=== PATIENT | female | born 1950 | race Caucasian/White ===

== ENCOUNTER 2022-09-18 03:14 | Emergency (ER) | payer OTHER ==
--- OUTSIDE RECORDS SUMMARY | 2022-09-18 03:18 | XMS REPORT | Continuity of Care Document ---
:1950 Author Organization [facility] t Address [address] [place] [address] [address] [place] [address] Care Team Providers Name Role Phone JOSE CRUZ GERONIMO Primary Care Physician Unavailable HANK GARCIA Attending Clinician Unavailable Hank Garcia MD Attending Clinician Doctor Unassigned, [place] Attending Clinician Unavailable RADIOLOGY Attending Clinician Unavailable Radiology Attending Clinician Unavailable SHAHEEN RIOS Attending Clinician Unavailable Jd Landa DO Attending Clinician ELIESER INMAN NP Attending Clinician Unavailable DAYNA LALA M.D. Attending Clinician Unavailable HANK GARCIA Admitting Clinician Unavailable Hank Garcia MD Admitting Clinician JOSE CRUZ GERONIMO Admitting Clinician Unavailable Payers Payer Name Policy Type Policy Number Effective Date Expiration Date [facility] [id number] 2021 [facility] 00:00:00 PPO [employer] MEDICARE ERS [id number] 2017 00:00:00 Problems Condition Condition Condition Status Onset Resolution Last Treating Co mments Source Name Details Category Date Date Treatment Clinician Date No known No known Disease Unive rs active active ity of problems problems [facility] Hallux Hallux Problem Active [facility] interphala interphala Ph ysici ngeus, ngeus, ans acquired, acquired, right right Acquired Acquired Problem Active [facility] hallux hallux Physici rigidus, rigidus, ans right right Pain due Pain due Problem Active [facility] to bone to bone Physici fixation fixation ans device, device, initial initial encounter encounter Allergies, Adverse Reactions, Alerts Allergy Allergy Status Severity Reaction(s) Onset Inactive Treating Comm ents Source Name Type Date Date Clinician NO KNOWN Drug Active Univers ALLERGIE Class ity of S [facility] Family History Family Member Diagnosis Comments Start Date Stop Date Source Father Family history of malignant [facility] neoplasm Social History Social Habit Start Date Stop Date Quantity Comments Source History of tobacco Cigarette Smoker University of use [facility] Cigarettes smoked 2022-04-03 2022-04-03 Univers ity of current (pack per 00:00:00 00:00:00 [facility] [place] ) - Reported Branch Cigarette 2022-04-03 2022-04-03 University of pack-years 00:00:00 00:00:00 [facility] Tobacco use and 2022-04-03 2022-04-03 Smokeless Universit y of exposure 00:00:00 00:00:00 tobacco non-user [facility] dical [place] Alcohol intake 2022-04-03 2022-04-03 Current drinker Unive rsity of 00:00:00 00:00:00 of alcohol [facility] (finding) [place] Alcohol Comment 2022-04-03 2022-04-03 rarely Universit y of 00:00:00 00:00:00 [facility] Exposure to 2022-03-18 2022-03-28 Not sure [facility] SARS-CoV-2 (event) 00:00:00 13:32:00 [facility] Sex [birth year] Universit y of 00:00:00 00:00:00 [facility] Smoking Status Start Date Stop Date Source Never smoker [facility] Ex-smoker 2022-04-03 00:00:00 2022-04-03 University [facility] [place] 00:00:00 [facility] Tobacco smoking [facility] xa consumption unknown Medical Bran ch Medications Ordered Filled Start Stop Current Ordering Indication Dosage Frequency Signature Comments Components Source Medication Medication Date Date Medication? Clinician (SIG) Name Name water for 2021-04- No PRN, Univers irrigation 06-04 Starting ity of irrigation 18:07: 18:31 on Fri [place] solution 00 :16 04/03/22 at Medic al 1207, Branch Until Fri04/03/22 at 1231, Routine, Intra-op simethicone 2021-04- No PRN, Unive rs (GAS RELIEF 06-04- Starting ity of (SIMETHICON 18:07: 18:31 on Fri [place] as E)) 40 00 :16 04/03/22 at Medical mg/0.6 mL 1207, Branch drops Until Fri04/03/22 at 1231, Routine, Intra-op lactated 2021-04- No 1000mL at 42 Unive rs ringers IV 06-04 12-07 mL/hr, ity of infusion 16:45: 16:37 1,000 mL, Edwar as 1,000 mL 00 :00 IV Medical Infusion, Branch ONCE, 1 dose, On Fri04/03/22 at 1045, Routine, DSU Pre-op lactated 2021-04- No 1000mL at 42 Unive rs ringers IV 06-04 12-07 mL/hr, ity of infusion 16:45: 16:37 1,000 mL, Ed[place] as 1,000 mL 00 :00 IV Medical Infusion, Branch ONCE, 1 dose, On Fri04/03/22 at 1045, Routine, DSU Pre-op Diethylprop 2021-04 Yes 1{tbl} Take 1 Un bashir ion HCl 75 0-10 tablet by ity of mg TbSR 00:00: mouth [place] 00 every Medical morning. Branch hydrOXYzine 2021-04 Yes 1{tbl} Take 1 Un bashir 10 mg 0-10 tablet by ity of tablet 00:00: mouth as [place] 00 needed. Medical Branch Diethylprop 2021-04 Yes 1{tbl} Take 1 Un bashir ion HCl 75 0-10 tablet by ity of mg TbSR 00:00: mouth [place] 00 every Medical morning. Branch hydrOXYzine 2021-04 Yes 1{tbl} Take 1 Un bashir 10 mg 0-10 tablet by ity of tablet 00:00: mouth as [place] 00 needed. Medical Branch Diethylprop 2021-04 Yes 1{tbl} Take 1 Un bashir ion HCl 75 0-10 tablet by ity of mg TbSR 00:00: mouth [place] 00 every Medical morning. Branch hydrOXYzine 2021-04 Yes 1{tbl} Take 1 Un bashir 10 mg 0-10 tablet by ity of tablet 00:00: mouth as [place] 00 needed. Medical Branch ezetimibe 2021-04 Yes 10mg Take 10 mg Un bashir 10 mg 0-03 by mouth ity of tablet 00:00: in the [place] morning. Medical Branch ezetimibe 2021-04 Yes 10mg Take 10 mg Un bashir 10 mg 0-03 by mouth ity of tablet 00:00: in the [place] morning. Medical Branch ezetimibe 2021-04 Yes 10mg Take 10 mg Un bashir 10 mg 0-03 by mouth ity of tablet 00:00: in the [place] morning. Medical Branch SERTraline 2021-04 Yes 50mg Take 50 mg U nivers 50 mg 0-01 by mouth ity of tablet 00:00: in the [place] morning. Medical Branch SERTraline 2021-04 Yes 50mg Take 50 mg U nivers 50 mg 0-01 by mouth ity of tablet 00:00: in the [place] morning. Medical Branch SERTraline 2021-04 Yes 50mg Take 50 mg U nivers 50 mg 0-01 by mouth ity of tablet 00:00: in the [place] morning. Medical Branch rosuvastati Yes 10mg Take 10 mg Univers n 10 mg 9-13 by mouth ity of tablet 00:00: every [place] other day. Medical Branch rosuvastati Yes 10mg Take 10 mg Univers n 10 mg 9-13 by mouth ity of tablet 00:00: every [place] other day. Medical Branch rosuvastati Yes 10mg Take 10 mg Univers n 10 mg 9-13 by mouth ity of tablet 00:00: every [place] other day. Medical Branch Acetaminoph Acetaminoph 2018-04 Yes DAYNA Q6H TAKE 1 UT en-Codeine en-Codeine 2-11 GREASER TABLET Physici 300-30 MG 300-30 MG 00:00: M.D. EVERY 6 ans Oral Tablet Oral Tablet 00 HOURS NEEDED. Cephalexin Cephalexin Yes DAYNA Q0.25D TAKE 1 UT 500 MG Oral 500 MG Oral 9-20 [facility] CAPSULE 4 Physici Capsule Capsule 00:00: M.D. TIMES ans 00 DAILY UNTIL GONE. Meloxicam Meloxicam Yes DAYNA 1 TAKE 1 UT 15 MG Oral 15 MG Oral 5-24 GREASER TABLET Physici Tablet Tablet 00:00: M.D. DAILY ans 00 NEEDED. methylPREDN methylPREDN 2018-0 Yes DAYNA USE UT ISolone 4 ISolone 4 5-24 GREASER DIRECTED. Physici MG Oral MG Oral 00:00: M.D. ans Tablet Tablet 00 Sertraline Sertraline Yes UT HCl TABS HCl TABS Physici ans Immunizations Ordered Filled Immunization Date Status Comments [facility] e Immunization Name Name SARS-COV-2 COVID-19 2020-06-07 Completed Unive rsity of PFIZER VACCINE 00:00:00 [facility] SARS-COV-2 COVID-19 2020-06-07 Completed Unive rsity of PFIZER VACCINE 00:00:00 [facility] SARS-COV-2 COVID-19 2020-06-07 Completed Unive rsity of PFIZER VACCINE 00:00:00 [facility] SARS-COV-2 COVID-19 2020-06-07 Completed Unive rsity of PFIZER VACCINE 00:00:00 [facility] SARS-COV-2 COVID-19 2020-06-07 Completed Unive rsity of PFIZER VACCINE 00:00:00 [facility] SARS-COV-2 COVID-19 2020-06-07 Completed Unive rsity of PFIZER VACCINE 00:00:00 [facility] SARS-COV-2 COVID-19 2020-05-17 Completed Unive rsity of PFIZER VACCINE 00:00:00 [facility] SARS-COV-2 COVID-19 2020-05-17 Completed Unive rsity of PFIZER VACCINE 00:00:00 [facility] SARS-COV-2 COVID-19 2020-05-17 Completed Unive rsity of PFIZER VACCINE 00:00:00 [facility] SARS-COV-2 COVID-19 2020-05-17 Completed Unive rsity of PFIZER VACCINE 00:00:00 [facility] SARS-COV-2 COVID-19 2020-05-17 Completed Unive rsity of PFIZER VACCINE 00:00:00 [facility] SARS-COV-2 COVID-19 2020-05-17 Completed Unive rsity of PFIZER VACCINE 00:00:00 [facility] SARS-COV-2 COVID-19 2020-05-17 Completed Unive rsity of PFIZER VACCINE 00:00:00 [facility] Vital Signs Vital Name Observation Time Observation Value Comments Source Systolic blood 2022-04-03 18:50:00 138 mm[Hg] Univer sity of pressure [place] [facility] Diastolic blood 2022-04-03 18:50:00 64 mm[Hg] Unive rsity of pressure [place] [facility] [place] Heart rate 2022-04-03 18:50:00 50 /min Universi ty of [place] [facility] Respiratory rate 2022-04-03 18:50:00 11 /min Univ ersity of [place] [facility] Oxygen saturation in 2022-04-03 18:50:00 99 /min University of Arterial blood by [facility] Pulse oximetry Branch Body temperature 2022-04-03 16:34:00 36.67 [facility] ersity of [place] [facility] Body height 2022-03-28 19:00:00 163.8 cm Universi ty of [place] [facility] [place] Body weight 2022-03-28 19:00:00 90.719 kg Universi ty of [place] [facility] [place] BMI 2022-03-28 19:00:00 33.80 kg/m2 Universi ty of [place] [facility] Systolic blood 2022-04-03 18:35:00 117 mm[Hg] Univer sity of pressure [place] [facility] Diastolic blood 2022-04-03 18:35:00 59 mm[Hg] Unive rsity of pressure [place] [facility] Heart rate 2022-04-03 18:35:00 52 /min Universi ty of [place] [facility] Respiratory rate 2022-04-03 18:35:00 16 /min Univ ersity of [place] [facility] Oxygen saturation in 2022-04-03 18:35:00 98 /min University of Arterial blood by [facility] Pulse oximetry Branch Body temperature 2022-04-03 16:34:00 36.67 Ana Univ ersity of [place] [facility] Body height 2022-03-28 19:00:00 163.8 cm Universi ty [facility] [place] [facility] Body weight 2022-03-28 19:00:00 90.719 kg [facility]i ty [facility] [place] [facility] BMI 2022-03-28 19:00:00 33.80 kg/m2 [facility] [place] [facility] Procedures Procedure Date / Time Performing Clinician Source Performed COLONOSCOPY 2022-04-03 17:51:00 Hank Garcia [facility] COLONOSCOPY (ENDO) 2022-04-03 17:36:20 Jose Cruz Geronimo [facility] COLONOSCOPY (ENDO) 2022-04-03 17:36:20 Jose Cruz Geronimo [facility] PATIENT QUESTIONNAIRE 2022-04-03 06:01:00 Doctor Unassigned, No [facility] EXTERNAL PROVIDER 2022-03-15 06:01:00 Doctor Unassigned, No [facility] EXTERNAL PROVIDER 2022-03-15 06:01:00 Doctor Unassigned, No [facility] BI SELF-REQUESTED 2021-03-09 15:57:00 Requisition, Paper [facility] BILATERAL ASSIGNMENT OF BENEFITS 2021-03-09 15:32:48 Doctor Unassigned, No [facility] BI SELF-REFERRED 2020-02-16 15:17:00 Jose [facility] BILATERAL ASSIGNMENT OF BENEFITS 2020-02-16 14:48:47 Doctor Unassigned, No [facility] Post Op Promis 29 Survey 2019-05-13 00:00:00 [place] [facility] Encounters Start End Encounter Admission Attending Care Care Encounter Source Date/Time Date/Time Type Type Clinicians Facility Department ID 2022-04-03 2022-04-03 Outpatient R [facility] [id number] Univers 10:28:00 13:02:00 HANK Mtz f [facility] 2022-04-03 2022-04-[address] [facility] 1.2.840.114 [id number] Univers 10:28:00 13:02:00 Encounter Hank mtz [id number] ity of [id number] [id number] [place] [id number] Branch 2022-04-03 2022-04-[address] [facility] 1.2.840.114 [id number] Univers 11:51:00 12:35:00 Hank mtz [id number] ity [id number] [id number] [facility] 020 Branch 2022-04-03 2022-04-03 Orders Doctor GEOVANI 1.2.840.114 [id number] Univers 00:00:00 00:00:00 Only Unassigned, HESHAM [id number] ity of [place] [facility] [id number] [place] as [id number] [facility] 009 Branch 2022-03-13 2022-03-13 Outpatient R RADIOLOGY [facility] [id number] Univers 10:58:28 23:59:00 ity of [facility] 2022-03-13 2022-03-13 Hospital Radiology [facility] 1.2.840.114 [id number] Univers 10:58:28 23:59:00 Encounter [place] [id number] ity [id number] [id number] [facility] [address] [place] 2021-03-09 2021-03-09 Outpatient R RADIOLOGY [facility] [id number] Univers 09:33:46 23:59:00 ity of [facility] 2021-03-09 2021-03-09 Hospital Radiology [facility] 1.2.840.114 [id number] Univers 09:33:46 23:59:00 Encounter [place] [id number] ity [id number] [id number] [facility] 800 Branch 2021-03-09 2021-03-09 Orders Doctor GEOVANI 1.2.840.114 [id number] Univers 00:00:00 00:00:00 Only Unassigned, HESHAM [id number] ity of [place] [facility]OSP[facility] [id number] [place] as [id number] [facility] 009 Branch 2020-06-07 2020-06-07 Outpatient R GABRIEL, [facility] [id number] Univers 11:50:00 11:50:00 SHAHEEN ity of [facility] 2020-05-18 2020-05-18 Patient Cordell [facility] 1.2.840.114 [id number] Univers 00:00:00 00:00:00 Outreach Jd PRIMARY [id number] i ty of [facility] [id number] [facility] [id number] [place] dical 388 [place] 2020-05-17 2020-05-17 Outpatient R GABRIEL, [facility] [id number] Univers 12:20:00 12:20:[address] [facility] 2020-05-11 2020-05-11 Outpatient R GABRIEL, [facility] [id number] Univers 10:10:00 10:10:[address] [facility] 2020-02-16 2020-02-16 [facility] Radiology [facility] 1.2.840.114 [id number] 09:49:36 23:59:00 Encounter [place]anch [id number] [place] [id number] [place] [id number] 2020-02-16 2020-02-16 [facility] Radiology [facility] 1.2.840.114 [id number] Univers 09:49:36 23:59:00 Encounter Blanch [id number] ity of [place] [id number] [facility] [place] [id number] [facility] 800 [place] 2020-02-16 2020-02-16 Outpatient R RADIOLOGY [facility] [id number] Univers 09:50:00 09:50:[address] [facility] 2020-02-16 2020-02-16 Orders Doctor GEOVANI 1.2.840.114 [id number] 00:00:00 00:00:00 Only Unassigned, [place]ESH[place] [id number] [place] [facility] 4.2.7.2.686 [id number] 2020-02-16 2020-02-16 Orders Doctor GEOVANI 1.2.840.114 [id number] Univers 00:00:00 00:00:00 Only Unassigned, HESHAM [id number] ity of [place] [facility] [id number] Ed[place] [id number] [facility] 009 [place] 2019-04-26 2019-04-26 AppointEAMON Lee UTP [id number] [place] 10:15:00 10:15:00 t; Lisa MON NP ans MELODY MON 2019-04-07 2019-04-07 Keith LALA [facility] Orthopedics [id number] [place] 07:00:00 07:00:00 t; gregorio MCINTOSH [facility] Vandana Ball [facility] 2019-04-07 2019-04-07 [facility] [id number] 05:08:00 05:08:00 Orthop e dic [facility] 2019-03-02 2019-03-02 Keith LALA [facility] Orthopedics [id number] [place] 10:30:00 10:30:00 t; gregorio MCINTOSH [facility] Vandana Winston [facility] 2019-01-08 2019-01-08 [facility] Radiology [facility] 1.2.840.114 [id number] 10:00:00 23:59:00 Encounter [place] [id number] [place] [id number] [place] [id number] 2019-01-08 2019-01-08 [facility] Radiology [facility] 1.2.840.114 [id number] [facility] 10:00:00 23:59:00 Encounter Blanch [id number] ity of [place] [id number] [facility] [id number] [address] 2018-03-24 2018-03-24 Keith INMAN, [facility] [id number] [place] 13:00:00 13:00:00 t; Lisa MON NP ans KRISTINA, NP 2018-02-12 2018-02-12 Keith LALA, [facility] [id number] [place] 11:00:00 11:00:00 t; Angela MCINTOSH M.D. ans MICHAEL, M.D. 2018-02-10 2018-02-10 Keith INMAN, [facility] [id number] [place] 14:15:00 14:15:00 t; Lisa MON NP ans KRISTINA, NP 2018-01-15 2018-01-15 Keith LALA, [facility] [id number] [place] 11:00:00 11:00:00 t; Chelsi MCINTOSH M.D. Orthopedics danitza MCINTOSH M.D. 2018-01-02 2018-01-02 [facility] [place] [id number] [place] 09:00:00 09:00:00 t; Chelsi MCINTOSH M.D. Orthopedics danitza MCINTOSH M.D. 2017-09-18 2017-09-18 Keith DAI [facility] [id number] [place] 09:45:00 09:45:00 t; Chelsi MCINTOSH M.D. Orthopedics danitza MCINTOSH M.D. Results Test Description Test Time Test Comments Results Result [facility] e Comments BI SELF-REFERRED 2020-01-28 Examination:BI Univ ersity of SCREENING 1 SELF-REFERRED [place] [facility] TOMOSYNTHESIS 16:36:40 SCREENING Branch BILATERAL TOMOSYNTHESIS BILATERAL History:Patient is 69 year old and is seen for: ?Screening. Computer-aided detection (CAD) utilized. Comparisons: 01/08/2019 BI SELF-REFERRED SCREENING TOMOSYNTHESIS BILATERAL, 09/15/2017 BI SCREENING TOMOSYNTHESIS BILATERAL, 12/27/2015 DIGITAL MAMMOGRAM, SCREENING, and 12/20/2014 DIGITAL MAMMOGRAM, SCREENING Findings:The breasts have scattered areas of fibroglandular density. There is no evidence of suspicious masses, calcifications, or other abnormal findings. The patient has had a previous reduction mammoplasty. Impression:No mammographic evidence of malignancy. Recommendation:Jennyfer thurston mammographic follow-up - Bilateral BI-RADS Category: Both 2 - Benign
[2022-09-18] MEDS ORDERED: METOCLOPRAMIDE 10 MG/2mL INJ ONE (04:04)
[2022-09-18] MEDS ORDERED: ONDANSETRON 4 MG/2 ML VIAL ONE (04:05)
[2022-09-18] MEDS ORDERED: NA CHLORIDE 0.9% 1,000 ML ONE ×2 (04:05→05:55)
[2022-09-18 04:17] LABS: Absolute Lymphocytes (CBC) 1.8 K/uL (0.7-4.9); Hematocrit 36.3 % (36.0-45.0); Lymphocytes % 37.4 % (15.3-44.8); MCV 87.2 fL (80-100); RBC Red Blood Cell Count 4.16 M/uL (3.86-4.86)
[2022-09-18 04:19] LABS: Protime INR 1.05
[2022-09-18 04:43] LABS: Albumin 3.5 g/dL (3.4-5.0); Bilirubin Total 0.4 mg/dL (0.2-1.0); Potassium 3.7 mEq/L (3.5-5.1); Protein, Total 6.5 g/dL (6.4-8.2); Troponin High Sensitivity 6.7 pg/mL (<58.9)
[2022-09-18] MEDS ORDERED: ALBUMIN HUMAN 25% 50 ML IV ONE ×2 (05:55→06:27)
--- NOTE | 2022-09-18 06:43 | ER ---
Nurse's Notes [facility] Name: Leona Perez Age: 72 yrs Sex: Female : 1950 Arrival Date: 09/18/2022 Time: 03:14 Bed 17 Private MD: Diagnosis: Adverse reaction to opiates, acute nausea vomiting, dizziness, mild dehydration. Presentation: 09/18 03:18 Onset of symptoms was September 18, 2022. [facility] 03:28 Chief complaint: Patient states: nausea vomiting burping since 2 am recent history of leg cramps reports severe cramping last PM took spouse hydrocodone and muscle relaxer prior to bed. Coronavirus screen: Vaccine status: Patient reports receiving the 2nd dose of the covid vaccine. Ebola Screen: Patient negative for fever greater than or equal to 101.5 degrees Fahrenheit, and additional compatible Ebola Virus Disease symptoms. Initial Sepsis Screen: Does the patient meet any 2 criteria? No. Patient's initial sepsis screen is negative. Does the patient have a suspected source of infection? No. Patient's initial sepsis screen is negative. Risk Assessment: Do you want to hurt yourself or someone else? Patient reports no desire to harm self or others. 03:28 Method Of Arrival: Wheelchair 03:28 Acuity: ZULEIKA 3 kl Triage Assessment: 03:33 General: Appears uncomfortable, ill, Behavior is cooperative, anxious. Pain: Complains kl of pain in bilateral lower extremities intermittent cramping. Neuro: Reports dizziness, weakness difficulty ambulating. GI: Reports nausea, vomiting, since 0200. Historical: - Allergies: 03:31 No Known Allergies; kl - Home Meds: 03:31 sertraline 50 mg oral tablet daily [Active]; ezetimibe 10 mg oral tablet daily kl [Active]; rosuvastatin 10 mg oral tablet daily [Active]; hydroxyzine HCl 10 mg Oral tablet 1 tab once [Active]; - PMHx: 03:31 Depression; kl - PSHx: 03:31 None; kl - Immunization history:: Adult Immunizations up to date. - Social history:: Smoking status: Patient/guardian denies using tobacco, but has a distant history of tobacco abuse. - Family history:: not pertinent. Screenin/23 03:18 Abuse screen: Denies threats or abuse. Denies injuries from another. Nutritional ha1 screening: No deficits noted. Tuberculosis screening: No symptoms or risk factors identified. 03:18 [facility] ED Fall Risk Assessment (Adult) History of falling in the last 3 months, ha1 including since admission No falls in past 3 months (0 pts) Confusion or Disorientation No (0 pts) Intoxicated or Sedated No (0 pts) Impaired Gait No (0 pts) Mobility Assist Device Used No (0 pt) Altered Elimination No (0 pt) Score/Fall Risk Level 0 - 2 = Low Risk Oriented to surroundings, Maintained a safe environment, Educated pt \T\ family on fall prevention, incl call for assistance when getting out of bed, Hourly rounding (assess needs \T\ fall precautionary measures) done. Assessment: 09/18 04:02 General: Appears uncomfortable, Behavior is calm, cooperative. Pain: Denies pain. ha1 Neuro: Level of Consciousness is awake, alert, obeys commands, Oriented to person, place, time, situation. Cardiovascular: Capillary refill Patient's skin is warm and dry. Rhythm is sinus bradycardia. Respiratory: Airway is patent Respiratory effort is even, unlabored, Respiratory pattern is regular, symmetrical. GI: Abdomen is flat, non-distended, Bowel sounds present X 4 quads. Reports indigestion, burping a lot. : No signs and/or symptoms were reported regarding the genitourinary system. Derm: Skin is pink, warm \T\ dry. Musculoskeletal: Circulation, motion, and sensation intact. Range of motion: intact in all extremities, Reports intermittent cramps on the legs. 04:02 EENT: No signs and/or symptoms were reported regarding the EENT system. ha1 05:00 Reassessment: Patient and/or family updated on plan of care and expected duration. Pain ha1 level reassessed. Patient is alert, oriented x 3, equal unlabored respirations, skin warm/dry/pink. Patient states symptoms have improved. 05:30 Reassessment: Patient and/or family updated on plan of care and expected duration. Pain ha1 level reassessed. Patient is alert, oriented x 3, equal unlabored respirations, skin warm/dry/pink. reported low blood pressure to Dr. Israel. 06:00 Reassessment: Patient and/or family updated on plan of care and expected duration. Pain ha1 level reassessed. Patient is alert, oriented x 3, equal unlabored respirations, skin warm/dry/pink. Patient denies pain at this time. Patient states feeling better. Patient states symptoms have improved. 07:15 Reassessment: awaiting fluid completion prior to patient discharge. ap3 08:23 Reassessment: No changes from previously documented assessment. Patient and/or family ll1 updated on plan of care and expected duration. Pain level reassessed. Patient is alert, oriented x 3, equal unlabored respirations, skin warm/dry/pink. Vital Signs: 03:28 BP 92 / 45; Pulse 47; Resp 16; Pulse Ox 100% on R/A; Weight 83.5 kg (M); Height 5 ft. 4 kl in. ; Pain 0/10; 04:30 BP 94 / 61; Pulse 56; Resp 15; Pulse Ox 95% on R/A; ha1 05:00 BP 93 / 60; Pulse 56; Resp 16 S; Pulse Ox 95% on R/A; ha1 05:30 BP 88 / 70; Pulse 54; Resp 16 S; Pulse Ox 97% on R/A; ha1 06:00 BP 102 / 68; Pulse 66; Resp 18 S; Pulse Ox 98% on R/A; ha1 07:05 Temp 97.9; ha1 08:21 BP 99 / 62; Pulse 57; Resp 15; Pulse Ox 96% ; Pain 0/10; ll1 03:28 Body Mass Index 31.60 (83.50 kg, 162.56 cm) kl 03:28 Pain Scale: Adult kl 08:21 Pain Scale: Adult ll1 ED Course: 03:16 Patient arrived in ED. ja2 03:18 Patient has correct armband on for positive identification. Placed in gown. Bed in low ha1 position. Call light in reach. Side rails up X 1. Adult w/ patient. 03:18 Arm band placed on right wrist. ha1 03:21 Getachew Israel MD is Attending Physician. sp4 03:24 Bety Cyr RN is Primary Nurse. ha1 03:31 Triage completed. kl 04:00 Inserted saline lock: 22 gauge in left antecubital area, using aseptic technique. Blood ha1 collected. 04:15 NT PRO-BNP Sent. ha1 04:15 PT-INR Sent. ha1 04:15 Troponin HS Sent. ha1 04:15 CBC with Diff Sent. ha1 04:15 CMP Sent. ha1 05:58 Chest Single View XRAY In Process Unspecified. EDMS 08:21 No provider procedures requiring assistance completed. IV discontinued, intact, ll1 bleeding controlled, No redness/swelling at site. Pressure dressing applied. Administered Medications: 04:10 Drug: Ondansetron IVP 4 mg Route: IVP; Site: left antecubital; ha1 06:20 Follow up: Response: No adverse reaction ha1 04:10 Drug: NS 0.9% IV 1000 ml Route: IV; Rate: 1 bolus; Site: left antecubital; ha1 06:20 Follow up: Response: No adverse reaction; IV Status: Completed infusion; IV Intake: ha1 1000ml 04:10 Drug: Ondansetron IVP 4 mg Route: IVP; Site: left antecubital; ha1 06:21 Follow up: Response: No adverse reaction ha1 04:14 Drug: metoCLOPramide IVP 10 mg Route: IVP; Site: left antecubital; ha1 06:21 Follow up: Response: No adverse reaction ha1 05:50 Drug: NS 0.9% IV 1000 ml Route: IV; Rate: 125 ml/hr; Site: left antecubital; ha1 08:22 Follow up: Response: No adverse reaction; IV Status: Completed infusion; IV Intake: ll1 1000ml 06:20 Drug: Albumin IVPB 25 grams Volume: 100 ml; Route: IVPB; Site: left antecubital; ha1 08:22 Follow up: Response: No adverse reaction; IV Status: Completed infusion; IV Intake: ll1 100ml Medication: 08:22 VIS not applicable for this client. ll1 Intake: 06:20 IV: 1000ml; Total: 1000ml. ha1 08:22 IV: 100ml; Total: 1100ml. ll1 08:22 IV: 1000ml; Total: 2100ml. ll1 Outcome: 06:43 Discharge ordered by . spHenry 08:22 Discharged to home ambulatory. ll1 08:22 Condition: stable 08:22 Discharge instructions given to patient, family, Instructed on discharge instructions, follow up and referral plans. medication usage, Demonstrated understanding of instructions, follow-up care, medications, Prescriptions given X 2. 08:23 Patient left the ED. ll1 Signatures: Dispatcher [employer] EDYarely Zamarripa RN RN kl Prokisch, Amanda, RN RN ap3 Lewis, Lynsay, RN RN ll1 Karen Sanz Heidy, RN RN ha1 Getachew Israel MD MD sp4 Corrections: (The following items were deleted from the chart) 08:22 08:22 Response: No adverse reaction 1 1
--- NOTE | 2022-09-18 06:44 | EDPHYS ---
Physician Documentation [facility] Name: Leona Perez Age: 72 yrs Sex: Female : 1950 Arrival Date: 09/18/2022 Time: 03:14 Bed 17 Private MD: ED Physician Getachew Israel HPI: 09/18 03:37 This 72 yrs old Female presents to ER via Wheelchair with complaints of sp4 Nausea, Weakness, Dizziness. 03:37 Very pleasant 72-year-old female with history of depression and dementia presents with sp4 cute onset of generalized weakness, vomiting, muscular cramps after she consumed her 's hydrocodone and tizanidine for muscle cramps at home. . Historical: - Allergies: 03:31 No Known Allergies; kl - Home Meds: 03:31 sertraline 50 mg oral tablet daily [Active]; ezetimibe 10 mg oral tablet daily kl [Active]; rosuvastatin 10 mg oral tablet daily [Active]; hydroxyzine HCl 10 mg Oral tablet 1 tab once [Active]; - PMHx: 03:31 Depression; kl - PSHx: 03:31 None; kl - Immunization history:: Adult Immunizations up to date. - Social history:: Smoking status: Patient/guardian denies using tobacco, but has a distant history of tobacco abuse. - Family history:: not pertinent. ROS: 06:09 Constitutional: Negative for fever, chills, and weight loss, Eyes: Negative for injury, sp4 pain, redness, and discharge, ENT: Negative for injury, pain, and discharge, Neck: Negative for injury, pain, and swelling, Cardiovascular: Negative for chest pain, palpitations, and edema, Respiratory: Negative for shortness of breath, cough, wheezing, and pleuritic chest pain, Abdomen/GI: Negative for abdominal pain, nausea, vomiting, diarrhea, and constipation, Back: Negative for injury and pain, : Negative for injury, bleeding, discharge, and swelling, MS/Extremity: Negative for injury and deformity, Skin: Negative for injury, rash, and discoloration, Neuro: Negative for headache, weakness, numbness, tingling, and seizure, Psych: Negative for depression, anxiety, Allergy/Immunology: Negative for hives, rash, and allergies Endocrine: Negative for neck swelling, polydipsia, polyuria, polyphagia, and weight changes Hematologic/Lymphatic: Negative for swollen nodes, abnormal bleeding, and unusual bruising Exam: 06:31 Constitutional: This is a well developed, well nourished patient who is awake, alert, sp4 and in no acute distress. Head/Face: Normocephalic, atraumatic. Eyes: Pupils equal round and reactive to light, extra-ocular motions intact. Lids and lashes normal. Conjunctiva and sclera are not injected. Cornea within normal limits. Periorbital areas with no swelling, redness, or edema. ENT: Nares patent. No nasal discharge, no septal abnormalities noted. Tympanic membranes are normal and external auditory canals are clear. Oropharynx with no redness, swelling, or masses, exudates, or evidence of obstruction, uvula midline. Mucous membranes moist. Neck: Trachea midline, no thyromegaly or masses palpated, and no cervical lymphadenopathy. Supple, full range of motion without nuchal rigidity, or vertebral point tenderness. No Meningismus. Chest/axilla: Normal chest wall appearance and motion. Nontender with no deformity. No lesions are appreciated. Cardiovascular: Regular rate and rhythm with a normal S1 and S2. No gallops, murmurs, or rubs. Normal PMI, no JVD. No pulse deficits. Respiratory: Lungs have equal breath sounds bilaterally, clear to auscultation and percussion. No rales, rhonchi or wheezes noted. No increased work of breathing, no retractions or nasal flaring. Abdomen/GI: Soft, non-tender, with normal bowel sounds. No distension or tympany. No guarding or rebound. No evidence of tenderness throughout. Back: No spinal tenderness. No costovertebral tenderness. Skin: Warm, dry with normal turgor. Normal color with no rashes, no lesions, and no evidence of cellulitis. MS/ Extremity: Pulses equal, no cyanosis. Neurovascular intact. Full, normal range of motion. Neuro: Awake and alert, GCS 15, oriented to person, place, time, and situation. Cranial nerves II-XII grossly intact. Motor strength 5/5 in all extremities. Sensory grossly intact. Psych: Awake, alert, with orientation to person, place and time. Behavior, mood, and affect are within normal limits 06:31 ECG was reviewed by the Attending Physician. 0 333. EKG reveals sinus bradycardia at sp4 the rate of 50, otherwise normal EKG. Vital Signs: 03:28 BP 92 / 45; Pulse 47; Resp 16; Pulse Ox 100% on R/A; Weight 83.5 kg (M); Height 5 ft. 4 kl in. ; Pain 0/10; 04:30 BP 94 / 61; Pulse 56; Resp 15; Pulse Ox 95% on R/A; ha1 05:00 BP 93 / 60; Pulse 56; Resp 16 S; Pulse Ox 95% on R/A; ha1 05:30 BP 88 / 70; Pulse 54; Resp 16 S; Pulse Ox 97% on R/A; ha1 06:00 BP 102 / 68; Pulse 66; Resp 18 S; Pulse Ox 98% on R/A; ha1 07:05 Temp 97.9; ha1 08:21 BP 99 / 62; Pulse 57; Resp 15; Pulse Ox 96% ; Pain 0/10; ll1 03:28 Body Mass Index 31.60 (83.50 kg, 162.56 cm) kl 03:28 Pain Scale: Adult kl 08:21 Pain Scale: Adult ll1 MDM: 03:22 Patient medically screened. sp4 06:31 Differential diagnosis: gastritis, diverticulitis, viral gastroenteritis, sp4 gastroenteritis, I Mary Jo reaction to opiate. Data reviewed: vital signs, nurses notes, old medical records, lab test result(s), EKG, radiologic studies, plain films. ED course: EKG reveals sinus bradycardia otherwise normal. Labs reveal mild elevation of blood sugar 152 otherwise normal chemistry and CBC, negative troponin. No signs of heart failure. Chest x-ray is normal. 06:42 ED course: Orthostatic blood pressures negative. Patient states she feels much sp4 improved. Will administer additional IV hydration and discharge home with as needed Zofran and Robaxin for muscle cramps.. 09/18 03:22 Order name: CBC with Diff; Complete Time: 05:40 sp4 09/18 03:22 Order name: CMP; Complete Time: 05:40 sp4 09/18 03:22 Order name: Lipase; Complete Time: 05:40 sp4 09/18 03:22 Order name: NT PRO-BNP; Complete Time: 05:40 sp4 09/18 03:22 Order name: PT-INR; Complete Time: 05:40 sp4 09/18 03:22 Order name: Troponin HS; Complete Time: 05:40 sp4 09/18 05:40 Order name: Troponin High Sensitivity; Complete Time: 07:24 sp4 09/18 05:40 Order name: BNP; Complete Time: 07:24 sp4 09/18 05:40 Order name: Chest Single View XRAY 09/18 03:22 Order name: EKG; Complete Time: 03:23 sp4 09/18 03:22 Order name: IV Saline Lock; Complete Time: 03:55 4 09/18 03:22 Order name: Labs collected and sent; Complete Time: 04:15 sp4 09/18 03:22 Order name: Cardiac monitoring; Complete Time: 03:55 sp4 09/18 03:22 Order name: EKG - Nurse/Tech; Complete Time: 04:15 sp4 09/18 03:22 Order name: O2 Per Protocol; Complete Time: 04:15 sp4 09/18 03:22 Order name: O2 Sat Monitoring; Complete Time: 04:15 4 EC:31 Rate is 50 beats/min. Rhythm is regular, Sinus bradycardia. QRS [place] is Normal. [place] sp4 interval is normal. QRS interval is normal. QT interval is normal. T waves are Normal. No ST changes noted. Clinical impression: Sinus bradycardia. Interpreted by me. Administered Medications: 04:10 Drug: Ondansetron IVP 4 mg Route: IVP; Site: left antecubital; ha1 06:20 Follow up: Response: No adverse reaction ha1 04:10 Drug: NS 0.9% IV 1000 ml Route: IV; Rate: 1 bolus; Site: left antecubital; ha1 06:20 Follow up: Response: No adverse reaction; IV Status: Completed infusion; IV Intake: ha1 1000ml 04:10 Drug: Ondansetron IVP 4 mg Route: IVP; Site: left antecubital; ha1 06:21 Follow up: Response: No adverse reaction ha1 04:14 Drug: metoCLOPramide IVP 10 mg Route: IVP; Site: left antecubital; ha1 06:21 Follow up: Response: No adverse reaction ha1 05:50 Drug: NS 0.9% IV 1000 ml Route: IV; Rate: 125 ml/hr; Site: left antecubital; ha1 08:22 Follow up: Response: No adverse reaction; IV Status: Completed infusion; IV Intake: ll1 1000ml 06:20 Drug: Albumin IVPB 25 grams Volume: 100 ml; Route: IVPB; Site: left antecubital; ha1 08:22 Follow up: Response: No adverse reaction; IV Status: Completed infusion; IV Intake: ll1 100ml Disposition Summary: 09/18/22 06:43 Discharge Ordered Location: Home sp4 Problem: chronic sp4 Symptoms: have improved sp4 Condition: Stable sp4 Diagnosis - Adverse reaction to opiates, acute nausea vomiting, dizziness, mild dehydration. sp4 Followup: sp4 - With: Private Physician - When: 7 - 10 days - Reason: Recheck today's complaints Discharge Instructions: - Discharge Summary Sheet sp4 - Dizziness, [id number] sp4 Prescriptions: - Zofran 4 mg Oral Tablet - take 1 tablet by ORAL route every 6 hours As needed PRN nausea; 30 tablet; sp4 Refills: 0, Product Selection Permitted - methocarbamol 750 mg Oral Tablet - take 2 tablets by ORAL route every 8 hours for 2 days PRN muscle cramps; 60 sp4 tablet; Refills: 0, Product Selection Permitted Signatures: Dispatcher [employer] Yarely Peralta RN RN kl Ayala, Heidy, RN RN ha1 Getachew Israel MD MD sp4 Abner Redding RN ll1
[2022-09-18 08:48] VITALS: BP 99/62; O2SAT 96
[2022-09-18 08:52] VITALS: TEMP 98.5
--- NOTE | 2022-09-19 05:35 | EKG ---
Test Date: 2022-09-18 Test Time: 03:33:01 Digital Business Analyst: BRIJESH MEASUREMENT RESULTS: Intervals: Rate: 50 AR: 138 QRSD: 80 QT: 504 QTc: 459 [place]: P: 80 AR: 138 QRS: 63 T: 49 INTERPRETIVE STATEMENTS: Sinus bradycardia Otherwise normal ECG No previous ECG available for comparison Electronically Signed On 09-19-22 05:33:40 CDT by Efe Galvan
--- NOTE | 2022-09-19 12:08 | RAD REPORT ---
EXAM DESCRIPTION: RAD - Chest Single View - 09/18/2022 5:56 am CLINICAL HISTORY: CHEST PAIN COMPARISON: None. TECHNIQUE: XR CHEST 1 VIEW 09/18/2022 5:40 AM CDT FINDINGS: Cardiac silhouette is normal in size. There is a small calcified granuloma in the mid left lung laterally. There is no focal consolidation. There is no pleural effusion. There is no pneumotho rax. There are no acute osseous findings. IMPRESSION: No pneumonia or edema. Electronically signed by: Victoriano Moreira MD 09/18/2022 6:06 AM CDT Due to temporary technical issues with the PACS/Fluency reporting system, reports are being signed by the in house radiologists without review as a courtesy to insure prompt reporting. The interpreting radiologist is fully responsible for the content of the report.
== END 2022-09-18 08:23 | disposition home or self-care (01) ==
LOC: ER 03:14
DX: R11.2 Nausea with vomiting, unspecified (principal); T40.605A Adverse effect of unspecified narcotics, initial encounter; E86.0 Dehydration; R42 Dizziness and giddiness; F32.A Depression, unspecified
CPT/HCPCS: 85025; 36415; 85610; 84484 ×2; 83690; 80053; 83880 ×2; 71045; J2765; J2405; P9047 ×2; J7030 ×2; 93005

== ENCOUNTER 2024-12-17 21:08 | Inpatient (IN) | payer OTHER ==
--- OUTSIDE RECORDS SUMMARY | 2024-12-17 21:12 | XMS REPORT | Continuity of Care Document ---
Author Name Unknown Address [address] [facility] [address] [place] [address] [facility] Address [address] [facility] [place] [address] Care Team Providers Care Telecommunications Equipment Installer Name Role Phone Jose Cruz Currie Primary Care Physician [phone]- [phone] Denisha Villa Attending Clinician Unavailable Kaleb Mccatrney MD Attending Clinician [phone] RADIOLOGY Attending Clinician Unavailable HANK AGUIRRE Attending Clinician Hank Zuniga MD Attending Clinician + [phone] Doctor Unassigned, [place] Attending Clinician Yoseph laguerre Radiology Attending Clinician Unavailable SHAHEEN RIOS Attending Clinician Unavailable Jd Landa DO Attending Clinician [phone] ELIESER INMAN, MELODY Attending Clinician DAYNA Reese M.D. Attending Clinician Denisha Partida Admitting Clinician Unavailable HANK AGUIRRE Admitting Clinician Hank Zuniga MD Admitting Clinician + [phone] JOSE CRUZ CURRIE Admitting Clinician Unavailable Payers Payer Name Policy Type Policy Number Effective Date Expirati on Date Source [facility] MEDICARE ADVANTAGE [id number] 2024 00:00:00 [facility] MEDICARE ADVANTAGE Medicare [id number] 2024 00:00:00 [facility] SELECT URI PPO [id number] 2021 00:00:00 [employer] MEDICARE ERS [id number] 00:00:00 Problems Condition Name Condition Details Condition Category Status Onset Date Resolution Date Last Treatment Date Treating Clinician Comments Source Acquired hallux rigidus, right Acquired hallux rigidus, right Problem Active [facility] Pain due to bone fixation device, initial encounter Pain due to bone fixation device, initial encounter Problem Active [facility] No known active problems No known active problems Disease [facility] Hallux interphala ngeus, acquired, right Hallux interphala ngeus, acquired, right Problem Active [facility] Allergies, Adverse Reactions, Alerts Allergy Name Allergy Type Status Severity Reaction(s) Onset Date Inactive Date Treating Clinician Comments Source No Known Drug Allergie s DA Active U 8- 00:00: 00 [facility] nickel DA Active [place] RASH 8-08 00:00: 00 [facility] No Known Drug Allergie s DA Active U 3-05 00:00: 00 [facility] nickel DA Active [place] RASH 3-05 00:00: 00 [facility] NO KNOWN ALLERGIE S Drug Class Active [facility] Family History Family Member Diagnosis Comments Start Date Stop Date Sourc e Father Family history of ma lignant neoplasm [facility] Social History Social Habit Start Date Stop Date Quantity Comments Source History of tobacco use Cigarette Smoker [facility] ASSERTION Possible [facility] Sexual orientation [facility] Tobacco use and exposure 2024-06-11 00:00:00 2024-06-11 00:00:00 Smokeless tobacco non-user [facility] Alcoholic beverage intake 2024-06-11 00:00:00 2024-06-11 00:00:00 Lifetime non-drinker (finding) [facility] History of Social function 2024-06-11 00:00:00 2024-06-11 00:00:00 [facility] Cigarettes smoked current (pack per day) - Reported 2022-04-03 00:00:00 2022-04-03 00:00:00 [facility] Cigarette pack-years 2022-04-03 00:00:00 2022-04-03 00:00:00 [facility] Alcohol intake 2022-04-03 00:00:00 2022-04-03 00:00:00 Current drinker of alcohol (finding) [facility] Alcohol Comment 2022-04-03 00:00:00 2022-04-03 00:00:00 rarely [facility] Exposure to SARS-CoV-2 (event) 2022-03-18 00:00:00 2022-03-28 13:32:00 Not sure [facility] Sex 2020-06-22 02:12:13 2020-06-22 02:12:13 Female (finding) [facility] Sex assigned at 1950 00:00:00 1950 00:00:00 [facility] Smoking Status Start Date Stop Date Source Never smoked tobacco [facility] Ex-smoker 2022-04-03 00:00:00 2022-04-03 00:00:00 [facility] Tobacco smoking consumption unknown [facility] Medications Ordered Medication Name Filled Medication Name Start Date Stop Date Current Medication? Ordering Clinician Indication Dosage Frequency Signature (SIG) Comments Components Source sertraline (Zoloft) 100 MG tablet 2023-04 00:00: 00 Yes 100mg QD Take 100 mg by mouth 1 (one) time each day. [facility] Pitavastati n Calcium 2 MG tablet 2023-04 00:00: 00 Yes 1{tbl} QD Take 1 tablet by mouth 1 (one) time each day. [facility] ezetimibe (Zetia) 10 MG tablet 2023-04 00:00: 00 Yes 10mg QD Take 10 mg by mouth 1 (one) time each day. [facility] water for irrigation irrigation solution 2021-04 18:07: 00 04-03 18:31 :16 No PRN, Starting on Fri04/03/22 at 1207, Until Fri04/03/22 at 1231, Routine, [facility] simethicone (GAS RELIEF (SIMETHICON E)) 40 mg/0.6 mL drops 2021-04 18:07: 00 04-03 18:31 :16 No PRN, Starting on Fri04/03/22 at 1207, Until Fri04/03/22 at 1231, Routine, Intra-op [facility] lactated ringers IV infusion 1,000 mL 2021-04 16:45: 00 04-03 16:37 :00 No 1000mL at 42 mL/hr, 1,000 mL, IV Infusion, ONCE, 1 dose, On Fri04/03/22 at 1045, Routine, DSU Pre-op [facility] Diethylprop ion HCl 75 mg TbSR 2021-04 0-10 00:00: 00 Yes 1{tbl} Take 1 tablet by mouth every morning. [facility] hydrOXYzine 10 mg tablet 2021-04 0 00:00: 00 Yes 1{tbl} Take 1 tablet by mouth as needed. [facility] ezetimibe 10 mg tablet 2021-04 0-03 00:00: 00 Yes 10mg Take 10 mg by mouth in the morning. [facility] SERTraline 50 mg tablet 2021-04 0- 00:00: 00 Yes 50mg Take 50 mg by mouth in the morning. [facility] rosuvastati n 10 mg tablet 01-08 00:00: 00 Yes 10mg Take 10 mg by mouth every other day. [facility] Acetaminoph en-Codeine 300-30 MG Oral Tablet Acetaminoph en-Codeine 300-30 MG Oral Tablet 2018-04 00:00: 00 Yes DAYNA LALA M.D. Q6H TAKE 1 TABLET EVERY [address] [facility] Cephalexin 500 MG Oral Capsule Cephalexin 500 MG Oral Capsule 01-15 00:00: 00 Yes DAYNA LALA M.D. Q0.25D TAKE 1 CAPSULE 4 TIMES DAILY UNTIL GONE. [facility] Meloxicam 15 MG Oral Tablet Meloxicam 15 MG Oral Tablet 24 00:00: 00 Yes DAYNA GREASER M.D. 1 TAKE 1 TABLET DAILY NEEDED. [facility] methylPREDN ISolone 4 MG Oral Tablet methylPREDN ISolone 4 MG Oral Tablet 0 09-18 00:00: 00 Yes DAYNA LALA M.D. USE DIRECTED. [facility] Sertraline HCl TABS Sertraline HCl TABS Yes [facility] Vital Signs Vital Name Observation Time Observation Value Comments S our Systolic blood pressure 2024-08-13 14:50:00 126 mm[Hg] [facility] Diastolic blood pressure 2024-08-13 14:50:00 82 mm[Hg] [facility] Body height 2024-08-13 14:50:00 163.8 cm [facility] Body weight 2024-08-13 14:50:00 105.235 [facility] BMI 2024-08-13 14:50:00 39.21 kg/m2 [facility] Systolic blood pressure 2024-06-11 19:50:00 122 mm[Hg] [facility] Diastolic blood pressure 2024-06-11 19:50:00 78 mm[Hg] [facility] Body height 2024-06-11 19:50:00 163.8 cm [facility] Body weight 2024-06-11 19:50:00 107.956 [facility] BMI 2024-06-11 19:50:00 40.22 kg/m2 [facility] Systolic blood pressure 2022-04-03 18:50:00 138 mm[facility]Hg[facility] Diastolic blood pressure 2022-04-03 18:50:00 64 mm[Hg] [facility] Heart rate 2022-04-03 18:50:00 50 /min [facility] Respiratory rate 2022-04-03 18:50:00 11 /min [facility] Oxygen saturation in Arterial blood by Pulse oximetry 2022-04-03 18:50:00 99 /min [facility] Body temperature 2022-04-03 16:34:00 36.67 Ana [facility] Body height 2022-03-28 19:00:00 163.8 cm [facility] Body weight 2022-03-28 19:00:00 90.719 kg [facility] BMI 2022-03-28 19:00:00 33.80 kg/m2 [facility] Systolic blood pressure 2022-04-03 18:35:00 117 mm[Hg] [facility] Diastolic blood pressure 2022-04-03 18:35:00 59 mm[Hg] [facility] Heart rate 2022-04-03 18:35:00 52 /min [facility] Respiratory rate 2022-04-03 18:35:00 16 /min [facility] Oxygen saturation in Arterial blood by Pulse oximetry 2022-04-03 18:35:00 98 /min [facility] Body temperature 2022-04-03 16:34:00 36.67 Ana [facility] Body height 2022-03-28 19:00:00 163.8 cm [facility] Body weight 2022-03-28 19:00:00 90.719 kg [facility] BMI 2022-03-28 19:00:00 33.80 kg/m2 [facility] Procedures Procedure Date / Time Performed Performing Clinician Source POCT URINALYSIS DIPSTICK 2024-08-13 15:14:00 [facility] POCT URINALYSIS DIPSTICK 2024-06-11 20:15:00 [facility] COLONOSCOPY 2022-04-03 17:51:00 Hank Aguirre [facility] COLONOSCOPY (ENDO) 2022-04-03 17:36:20 Jose Cruz Currie [facility] COLONOSCOPY (ENDO) 2022-04-03 17:36:20 Jose Cruz Currie [facility] PATIENT QUESTIONNAIRE 2022-04-03 06:01:00 Doctor Unassigned, [place] [facility] EXTERNAL PROVIDER RECORDS 2022-03-15 06:01:00 Doctor Unassigned, [place] [facility] EXTERNAL PROVIDER RECORDS 2022-03-15 06:01:00 Doctor Unassigned, [place] [facility] BI SELF-REQUESTED SCREENING TOMOSYNTHESIS BILATERAL 2021-03-09 15:57:00 Requisition, Paper [facility] ASSIGNMENT OF BENEFITS 2021-03-09 15:32:48 Docto r Unassigned, [place] [facility] BI SELF-REFERRED SCREENING TOMOSYNTHESIS BILATERAL 2020-02-16 15:17:00 Jose Cruz Currie [facility] ASSIGNMENT OF BENEFITS 2020-02-16 14:48:47 Butch giang Unassigned, [place] [facility] Post Op Promis 29 Survey 2019-05-13 00:00:00 [facility] Encounters Start Date/Time End Date/Time Encounter Type Admission Type Attending [facility] Care Facility Care Department Encounter ID Source 2024-08-20 07:30:00 Inpatient Denisha FanTO PADM [id number] [facility] 2023-05-08 08:14:01 Outpatient [facility] [id number] [facility] 2024-12-03 05:39:00 2024-12-03 12:20:00 Inpatient Denisha Fan [facility] [id number] [facility] 2024-08-20 06:00:00 2024-08-20 15:14:00 Inpatient Denisha Fan [facility] [id number] [facility] 2024-08-13 09:50:00 2024-08-13 10:30:55 Office Visit Kaleb Mccartney [facility] [address] [place] 1.2.840.114 350.1.13.58 9.2.7.2.686 [id number] [facility] 2024-07-26 11:27:00 2024-07-26 11:27:00 Outpatient Denisha Fan [facility] RADI [id number] [facility] 2024-07-16 11:20:00 2024-07-16 11:20:00 Outpatient KALEB MCCARTNEY [facility] [id number] [facility] 2024-06-30 19:01:00 2024-06-30 19:01:00 Outpatient Denisha Fan HCAW[facility] REFE [id number] [facility] 2024-06-30 15:46:00 2024-06-30 15:46:00 Outpatient Denisha Fan HCACL LABO [id number] [facility] 2024-06-23 00:00:00 2024-06-23 09:03:16 Results Follow-Up Sylvain Kaleb [facility] [place] [place] [address] [place] 1.2.840.114 350.1.13.58 9.2.7.2.686 [id number] [facility] 2024-06-22 14:26:36 2024-06-22 16:06:06 Outpatient Elective [facility] M[facility]OUT [id number] [facility] 2024-06-11 14:10:00 2024-06-11 14:26:17 Office Visit Kaleb Mccartney [facility] [place] [place] [address] [place] 1.2.840.114 350.1.13.58 9.2.7.2.686 [id number] [facility] 2024-05-31 00:00:00 2024-05-31 00:00:00 Outpatient R RADIOLOGY [facility] [id number] [facility] 2023-08-18 00:00:00 2023-08-18 00:00:00 Outpatient R RADIOLOGY [facility] [id number] [facility] 2023-04-25 00:00:00 2023-04-25 00:00:00 Outpatient R RADIOLOGY [facility] [id number] [facility] 2022-04-03 10:28:00 2022-04-03 13:02:00 Outpatient R HANK CARRILLO [facility] [id number] [facility] 2022-04-03 10:28:00 2022-04-03 13:02:00 Hospital Encounter Hank Carrillo [facility] 1.2.840.114 350.1.13.10 4.2.7.2.[id number] [facility] 2022-04-03 11:51:00 2022-04-03 12:35:00 Surgery Hank Carrillo [facility] 1.2.840.114 350.1.13.10 4.2.7.2.[id number] [facility] 2022-04-03 00:00:00 2022-04-03 00:00:00 Orders Only Doctor Unassigned, [place] [facility] 1.2.840.114 350.1.13.10 4.2.7.2.[id number] [facility] 2022-03-13 10:58:28 2022-03-13 23:59:00 Outpatient R RADIOLOGY [facility] [id number] [facility] 2022-03-13 10:58:28 2022-03-13 23:59:00 Hospital Encounter Radiology [facility] 1.2.840.114 350.1.13.10 4.2.7.2.[id number] [facility] 2021-03-09 09:33:46 2021-03-09 23:59:00 Outpatient R RADIOLOGY [facility] [id number] [facility] 2021-03-09 09:33:46 2021-03-09 23:59:00 Hospital Encounter Radiology [facility] 1.2.840.114 350.1.13.10 4.2.7.2.[id number] [facility] 2021-03-09 00:00:00 2021-03-09 00:00:00 Orders Only Doctor Unassigned, [place] [facility] 1.2.840.114 350.1.13.10 4.2.7.2.[id number] [facility] 2020-06-07 11:50:00 2020-06-07 11:50:00 Outpatient R SHAHEEN RIOS [facility] [id number] [facility] 2020-05-18 00:00:00 2020-05-18 00:00:00 Patient Outreach Jd Landa [facility] 1.2.840.114 350.1.13.10 4.2.7.2.[id number] [facility] 2020-05-17 12:20:00 2020-05-17 12:20:00 Outpatient R SHAHEEN RIOS [facility] [id number] [facility] 2020-05-11 10:10:00 2020-05-11 10:10:00 Outpatient R SHAHEEN RIOS [facility] [id number] [facility] 2020-02-16 09:49:36 2020-02-16 23:59:00 Hospital Encounter Radiology [facility] 1.2.840.114 350.1.13.10 4.2.7.2.[id number] [facility] 2020-02-16 09:49:36 2020-02-16 23:59:00 Hospital Encounter Radiology [facility] 1.2.840.114 350.1.13.10 4.2.7.2.686 [id number] 2020-02-16 09:50:00 2020-02-16 09:50:00 Outpatient R RADIOLOGY [facility] [id number] [facility] 2020-02-16 00:00:00 2020-02-16 00:00:00 Orders Only Doctor Unassigned, [place] [facility] 1.2.840.114 350.1.13.10 4.2.7.2.[id number] [facility] 2020-02-16 00:00:00 2020-02-16 00:00:00 Orders Only Doctor Unassigned, [place] [facility] 1.2.840.114 350.1.13.10 4.2.7.2.686 [id number] 2019-04-26 10:15:00 2019-04-26 10:15:00 Appointmen t; ELIESER INMAN NP PATRICK, KRISTINA, NP [facility] UTP [id number] [facility] 2019-04-07 07:00:00 2019-04-07 07:00:00 Appointmen t; DAYNA LALA M.D. GREASER, MICHAEL, M.D. [facility] Orthopedics at [facility] Orthopedic [facility] [id number] [facility] 2019-04-07 05:08:00 2019-04-07 05:08:00 Outpatient [id number] [facility] 2019-03-02 10:30:00 2019-03-02 10:30:00 Appointmen t; DAYNA LALA M.D. GREASER, MICHAEL, M.D. [facility] Orthoped[facility] at [facility] Orthopedic [facility] [id number] [facility] 2019-01-08 10:00:00 2019-01-08 23:59:00 Hospital Encounter Radiology [facility] 1.2.840.114 350.1.13.10 4.2.7.2.[id number] [facility] 2019-01-08 10:00:00 2019-01-08 23:59:00 Hospital Encounter Radiology [facility] 1.2.840.114 350.1.13.10 4.2.7.2.686 [id number] 2018-03-24 13:00:00 2018-03-24 13:00:00 Appointmen t; ELIESER INMAN NP PATRICK, KRISTINA, NP [facility] UTP [id number] [facility] 2018-02-12 11:00:00 2018-02-12 11:00:00 Appointmen t; DAYNA LALA M.D. GREASER, MICHAEL, M.D. [facility] [id number] [facility] 2018-02-10 14:15:00 2018-02-10 14:15:00 Appointmen t; ELIESER INMAN NP PATRICK, KRISTINA, NP [facility]TP [id number] [facility] 2018-01-15 11:00:00 2018-01-15 11:00:00 Appointmen t; GREDAYNA MCKINNON M.D. GREASER, MICHAEL, M.D. [facility] Orthopedics [id number] [facility] 2018-01-02 09:00:00 2018-01-02 09:00:00 Appointmen t; DAYNA LALA M.D. GREASER, MICHAEL, M.D. [facility] [id number] [facility] 2017-09-18 09:45:00 2017-09-18 09:45:00 Appointmen t; DAYNA LALA M.D. GREASER, MICHAEL, M.D. [facility] Orthopedic [id number] [facility] Results Test Description Test Time Test Comments Results Resul t Comments Source - XR KNEE 1 OR 2 V RT 2024-12-06 18:34:00 [facility] 1950 Sex: F Patient Name: LEONA GLASS Unit No: [id number] EXAMS: CPT CODE: [id number] XR KNEE 1 OR 2 [place] [address]80 IMAGES PROVIDED: 2 FINDINGS: Postoperative changes from right total knee arthoplasty demonstrated without evidence of immediate complication. No acute fracture is visualized. IMPRESSION: Postoperative exam as above. at 1834 Reported and signed by: Tone Johnson M.D. CC: Denisha Villa MD Technologist: Amberly Alvarez(R) Transcribed D/ (6044) [email or web address] [facility] NAME: LEONA GLASS [address] [facility] PHYS: PATAN. Denisha Villa MD : 1950 AGE: 74 SEX: F [place], [place] [address] LOC: Y.O17 A PHONE #: [phone] EXAM DATE: 12/03/2024 STATUS: DIS IN FAX #: [phone] RAD #: D/C DT 12/03/2024 PAGE 1 Signed Report Patient Name: LEONA GLASS Unit No: [id number] EXAMS: CPT CODE: [id number] XR KNEE 1 OR 2 V RT [id number] (Continued) Orig Print D/T: S: 12/06/2024 (1837) [facility] NAME: LEONA GLASS [id number] [facility] PHYS: ISAIAH. - Denisha Villa MD : 1950 AGE: 74 SEX: F [place] [id number] LOC: Y.O17 A PHONE #: [phone] EXAM DATE: 12/03/2024 STATUS: DIS IN FAX #: [phone] RAD #: D/C DT 12/03/2024 PAGE 2 Signed Report GLYCOSYLATED HEMOGLOBIN (HA1C)2024-11-25 23:17:00* Test Item Value Reference Range Interpretation Comme nts GLYCOSYLATED HEMOGLOBIN (HA1C) (test code = GLYHGB) 5.80 % 4.8-6.0 Any conditi on that shortens erythocyte survival or decreasesmean erythrocyte age (e.g., recovery from acute blood loss,hemolytic anemai) will falsely lower HGBA1c resultsregardless of the method used. HGBA1c results frompatients with HbSS, HbCC and HbSc must be interpreted withcaution given the pathological processes, including anemia,increased red cell turnover, transfusion requirements, thatadversely impact HGBA1c as a marker of long-term glycemiccontrol. Alternative forms of testing such as fructosamineshould be considered for these patients.DONE AT: [address] [address] GLYCOSYLATED HEMOGLOBIN (HA1C)2024-11-25 23:16:00* Test Item Value Reference Range Interpretation Comme nts GLYCOSYLATED HEMOGLOBIN (HA1 C) (test code = GLYHGB) 5.80 % 4.8-6.0 N PROTHROMBIN [id number] 15:43:00* Test Item Value Reference Range Interpretation Comme nts PROTHROMBIN TIME PATIENT (test code = PTP) 10.5 secs 9.4-12.5 N INTERNATIONAL NORMAL RATIO (test code = INR) 0.95 <2.0 RECOMMENDED THER APEUTIC RANGE FOR ORAL ANTICOAGULANTTREATMENT: CONDITION INRProphylaxis of venous thrombosis in 2.0 - 3.0 high-risk medical or surgical patientsTreatment of venous thrombosis 2.0 - 3.0Prevention of embolism 2.0 - 3.0Prevention of recurrent embolism, or 3.0 - 4.5 patients with mechanical prosthetic intravascular valves IS PATIENT ON ANTICOAGULANTS ? [facility] been notified if Patient is on Heparin Drip? NOTHROMBOPLASTIN TIME [id number] 15:43:00* Test Item Value Reference Range Interpretation Comme nts PTT ACTIVATED (test code = APTT) 28.8 secs 25.1-36.5 N IS PATIENT ON ANTICOAGULANTS ? [facility] been notified if Patient is on Heparin Drip? NOCOMPREHENSIVE METABOLIC [id number] 15:13:00* Test Item Value Reference Range Interpretation Comme nts SODIUM (test code = NA) 144 mmol/L 136-145 N POTASSIUM (test code = K) 4.0 mmol/L 3.5-5.1 N CHLORIDE (test code = CL) 107.0 mmol/L 98-107 N CARBON DIOXIDE (test code = CO2) 28.4 mmol/L 21-32 N GLUCOSE (test code = GLU) 109 mg/dL 74-106 H BLOOD UREA NITROGEN (test code = BUN) 18 mg/dL 7-18 N GLOMERULAR FILTRATION RATE (test code = GFR) 78.2 >60 The Glomerular Filtration Rate is a calculated parameterbased on serum Creatinine, patient age and sex. GFR valuesless than 60 mL/min/1.73 square meters are indicative ofChronic Kidney Disease. Values less than 15 mL/min/1.73square meters indicate Kidney failure. The calculation forGFR is based on the CKD-EPI (2020) calculation. This formulais race indifferent and is the recommended formula for GFRby the National Kidney Foundation for Adults.The GFR will not calculate if the sex is unknown or if thepatient's age is <18 years. CREATININE (test code = CREAT) 0.80 mg/dL 0.55-1.02 N TOTAL PROTEIN (test code = PROT) 6.9 g/dL 6.4-8.2 N ALBUMIN (test code = ALB) 3.7 g/dL 3.4-5.0 N GLOBULIN (test code = GLOB) 3.2 g/dL 2.2-4.2 N ALBUMIN/GLOBULIN RATIO (test code = A/G) 1.2 0.7-2.0 N CALCIUM (test code = CA) 9.0 mg/dL 8.5-10.1 N BILIRUBIN TOTAL (test code = BILT) 0.20 mg/dL 0.2-1.00 N SGOT/AST (test code = AST) 17.0 U/L 15-37 N SGPT/ALT (test code = ALT) 21.0 U/L 14-59 N ALKALINE PHOSPHATASE TOTAL (test code = ALKP) 97 U/L 46-116 N CBC W/AUTO [id number] 15:12:00* Test Item Value Reference Range Interpretation Comme nts WHITE BLOOD CELL (test code = WBC) 4.8 K/mm3 3.9-10.0 N Please note new reference ranges September 2024 RED BLOOD CELL (test code = RBC) 4.65 M/mm3 3.93-5.22 N Please note new reference ranges September 2024 HEMOGLOBIN (test code = HGB) 13.2 g/dL 11.2-15.7 N Please note new reference ranges September 2024 HEMATOCRIT (test code = HCT) 40.5 % 34.1-44.9 N Please note new reference ranges September 2024 MEAN CELL VOLUME (test code = MCV) 87 fL 79-95 N Please note new reference ranges September 2024 MEAN CELL HGB (test code = MCH) 28.4 pg 25.6-32.2 N Please note new reference ranges September 2024 MEAN CELL HGB CONCENTRATION (test code = MCHC) 32.6 g/dL 32.2-35.5 N Please note new reference ranges September 2024 RED CELL DISTRIBUTION WIDTH (test code = RDW) 12.5 % 11.7-14.4 N PLT (test code = PLT) 198 K/mm3 182-369 N Ple ase note new reference ranges September 2024 MEAN PLATELET VOLUME (test code = MPV) 9.9 fl 9.4-12.3 N Please note ne w reference ranges September 2024 NEUTROPHIL % (test code = NT%) 47.3 % 34.0-71.1 N Please note new reference ranges September 2024 LYMPHOCYTE % (test code = LY%) 39.8 % 19.3-51.7 N Please note new reference ranges September 2024 MONOCYTE % (test code = MO%) 9.8 % 4.7-12.5 N Please note new reference ranges September 2024 EOSINOPHIL % (test code = EO%) 2.7 % 0.7-5.8 N Please note new reference ranges September 2024 BASOPHIL % (test code = BA%) 0.2 % 0.1-1.2 N Please note new reference ranges September 2024 NEUTROPHIL # (test code = NT#) 2.28 K/mm3 1.56-6.13 N Please note new reference ranges September 2024 LYMPHOCYTE # (test code = LY#) 1.92 K/mm3 1.18-3.74 N Please note new reference ranges September 2024 MONOCYTE # (test code = MO#) 0.47 K/mm3 0.24-0.86 N Please note new reference ranges September 2024 EOSINOPHIL # (test code = EO#) 0.13 K/mm3 0.04-0.36 N Please note new reference ranges September 2024 BASOPHIL # (test code = BA#) 0.01 K/mm3 0.01-0.08 N Please note new reference ranges September 2024 MANUAL DIFF REQUIRED (test code = MDIFF) NO MANUAL DIFF - XR KNEE 1 OR 2 V [id number] 06:52:00 [facility] 1950 Sex: F Patient Name: LEONA GLASS Unit No: [id number] EXAMS: CPT CODE: [id number] XR KNEE 1 OR 2 V LT 27449GLCV KNEE 2 VIEWS PORTABLE COMMENT: The patient is status post joint replacement which is articulating normally. at 0652 Reported and signed by: Jefferson Rm MD CC: Marlene Truong; Denisha Villa MD Technologist: Amberly Morillo(R) Transcribed D/ (0652) Opal[facility] NAME: LEONA GLASS [address] [facility] PHYS: PATAN.Denisha Marte MD : 1950 AGE: 74 SEX: F [place] [id number] LOC: Y.O21 A PHONE #: [phone] EXAM DATE: 08/20/2024 STATUS: DIS IN FAX #: [phone] RAD #: D/C DT 08/20/2024 PAGE 1 Signed Report Patient Name: LEONA GLASS Unit No: [id number] EXAMS: CPT CODE: [id number] XR KNEE 1 OR 2 V LT 15901 (Continued) Orig Print D/T: S: 08/23/2024 (0655) [facility] NAME: LEONA GLASS [address] [facility] PHYS: PATAN. - Denisha Villa MD : 1950 AGE: 74 SEX: F [place] [id number] LO C: Y.O21 A PHONE #: [phone] EXAM DATE: 08/20/2024 STATUS: DIS IN FAX #: [phone] RAD #: D/C DT 08/20/2024 PAGE 2 Signed ReportPOCT urinalysis dipstick manually [id number] 15:14:54* Test Item Value Reference Range Interpretation Comme nts Glucose, UA (test code = 7017625) Negative Negative Bilirubin, UA (test code = 8519762) Negative Negative Ketones, Urine (test code = 56931-6) Negative Negative, Trace Spec Grav, UA (test code = 676161172) 1.025 Blood, UA (test code = 126468935) Mod pH, UA (test code = 0288412) 7 5.0-8.5 Protein, UA (test code = 4464952) Negative Negative, Trace, 200(+2)mg/dL, 15/mg/dL UROBILINOGEN, POC (test code = 34273397) 1.0 Nitrite, UA (test code = 8359146) Negative Negative, Trace Leukocytes, UA (test code = 1043926) Negative Negative, Trace Lab Interpretation (test cod e = 75882-7) Abnormal CT HealthGLYCOSYLATED HEMOGLOBIN (HA1C)2024-06-30 21:46:00* Test Item Value Reference Range Interpretation Comme nts GLYCOSYLATED HEMOGLOBIN (HA1 C) (test code = GLYHGB) 5.90 % 4.8-6.0 N POCT urinalysis dipstick manually [id number] 20:15:25* Test Item Value Reference Range Interpretation Comme nts Glucose, UA (test code = 5887446) Negative Negative Bilirubin, UA (test code = 6065003) Negative Negative Ketones, Urine (test code = 54747-5) Negative Negative, Trace Spec Grav, UA (test code = 904347442) 1.015 Blood, UA (test code = 620659199) Small pH, UA (test code = 8126489) 5.5 5.0-8.5 Protein, UA (test code = 7586143) Negative Negative, Trace, 200(+2)mg/dL, 15/mg/dL UROBILINOGEN, POC (test code = 95684055) 0.2 Nitrite, UA (test code = 8532848) Negative Negative, Trace Leukocytes, UA (test code = 5784450) Negative Negative, Trace Lab Interpretation (test cod e = 55695-0) Normal [facility] SELF-REFERRED SCREENING TOMOSYNTHESIS [id number] 16:36:40 Examination:BI SELF-REFERRED SCREENING TOMOSYNTHESIS BILATERAL History:Patient is 69 year old and is seen for: ?Screening. Computer-aided detection (CAD) utilized. Comparisons: 01/08/2019 BI SELF-REFERRED SCREENING TOMOSYNTHESIS BILATERAL, 09/15/2017 BI SCREENING TOMOSYNTHESIS BILATERAL, 12/27/2015DIGITAL MAMMOGRAM, SCREENING, and 12/20/2014 DIGITAL MAMMOGRAM, SCREENING Findings:The breasts havescattered areas of fibroglandular density. There is no evidence of suspicious masses, calcifications, or other abnormal findings. The patient has had a previous reduction mammoplasty. Impression:No mammographic evidence of malignancy. Recommendation:Annual mammographic follow-up - Bilateral BI-RADS Category: Both 2 - [facility] Date/Time Note Provider Source 2024-12-03 10:59:00 [facility] Discharge Summary REPORT#:[id number] REPORT STATUS: Signed REPORT INITIALIZATION DATE:12/03/24 TIME: 1058 PATIENT: LEONA GLASS UNIT #: [id number] ROOM/BED: [address] : [birth year] AGE: 74 SEX: F ATTEND: Denisha Villa MD ADM AUTHOR: Marlene Truong REPT SERVICE DT/TIME: 12/03/24 1059 * ALL edits or amendments must be made on the electronic/computer document * General Information Discharge date: 12/03/24 Discharge diagnosis: s/p knee arthroplasty Hospital course: Discharge Diagnosis: Right Knee Degenerative Disease Procedure: Right Knee Arthroplasty Hospital Course and Findings The patient underwent the procedure without incident. Findings were significant for degenerative disease of the knee. The patient was hemodynamically and medically monitored during the postoperative period. Anticoagulation was instituted for postoperative DVT prophylaxis. The patient was progressively able to tolerate PO pain medications and the appropriate diet. Physical therapy was instituted, with a progressive ability to ambulate and perform exercises. The patient was eventually deemed stable and safe for discharge. Despite factors which projected a longer hospital stay, the patient fulfilled criteria for earlier than expected discharge, including control of pain, early mobilization with therapy, and a stable hemodynamic status. At discharge, the patient was comfortable, with a controlled pain level. There were no chest or abdominal symptoms present. Discharge physical examination demonstrated stable vital signs and no acute distress. The patient had an intact wound with no significant drainage, and no calf tenderness and a negative Talon's sign bilaterally. There were no neurologic or vascular deficits or changes from the preoperative state. Disposition: Discharged to home Discharge Condition: Stable Instructions: Instruction sheet given to patient Activity: Ambulate with assistance, with weight-bearing as instructed in the hospital. Diet: As per preoperatively Prescriptions 1. Pain Medications: As per discharge prescription, with progressive weaning as pain decreases 2. Anticoagulation: As per discharge prescription, or PreOp anticoagulant, as discussed with patient 3. Physical Therapy: Will undergo PT for gait training, mobilization, zjeqm-li-eqdwue, and strengthening. Patient was informed that they need to arrange for therapy as quickly as possible. The importance of early advancement of vqbil-hu-tqccii with home exercises, and physical therapy was stressed to the patient. Follow-up Appointment: Patient instructed to arrange appointment for an office visit in 2 weeks Med Rec Med Rec Discharge meds: Continue taking these medications: EZETIMIBE (EZETIMIBE) 10 MG TAB 10 MILLIGRAM ORAL DAILY. PITAVASTATIN (LIVALO) 2 MG TAB 2 MILLIGRAM ORAL DAILY. SERTRALINE (ZOLOFT) 100 MG TAB 100 MILLIGRAM ORAL DAILY. ACETAMINOPHEN (TYLENOL) 500 MG TAB 1,000 MILLIGRAM ORAL EVERY 8 HR NEEDED. as needed for PAIN TERBINAFINE (LamISIL) 250 MG TAB 250 MILLIGRAM ORAL DAILY. ESZOPICLONE (ESZOPICLONE) 3 MG TAB 3 MILLIGRAM ORAL BEDTIME. ASPIRIN EC (ECOTRIN) 81 MG TAB.EC 81 MILLIGRAM ORAL TWICE DAILY. DOXYCYCLINE HYCLATE (VIBRAMYCIN) 100 MG CAP 100 MILLIGRAM ORAL EVERY 12 HOURS. MELOXICAM (MOBIC) 15 MG TAB 1 TABLET ORAL DAILY. Instructions: WITH FOOD oxyCODONE (oxyCODONE) 5 MG TAB 5 MILLIGRAM ORAL EVERY 6 HOURS NEEDED. as needed for SEVERE PAIN tiZANidine (ZANAFLEX) 2 MG TAB 2 MILLIGRAM ORAL EVERY 6 HOURS NEEDED. as needed for MUSCLE SPASM/PAIN TRANEXAMIC ACID (TRANEXAMIC ACID) 650 MG TAB 650 MILLIGRAM ORAL DAILY. Discharge Instructions PCP )( Discharge to: Home/Self Care Discharge Instructions Additional Discharge Routines: Wound/Dressing Care, Add. instructions )( Diet: Regular )( Wound/dressing care: Leave dressing in place )( Additional instructions: see handout Follow-up Appointments Attending Physician: Attending Physician: Denisha Villa MD Attending physician follow up timeframe: In 2-3 weeks at 1234 RPT #:[id number] END OF REPORT [facility] 2024-12-03 09:10:00 [facility] ([facility]) DT Operative Note REPORT#:[id number] REPORT STATUS: Signed REPORT INITIALIZATION DATE:12/03/24 TIME: 909 PATIENT: LEONA GLASS UNIT #: [id number] ROOM/BED: [address] : [birth year] AGE: 74 SEX: F ATTEND: Denisha Villa MD ADM AUTHOR: Denisha Villa MD REPT SERVICE DT/TIME: 12/03/24 09 * ALL edits or amendments must be made on the electronic/computer document * See Addendum Operative Report Operative Note Note: ORTHO OP NOTE Patient Name: Leona Glass : 54 DOS: 12/03/24 Pre-op Diagnosis: Right Knee Osteoarthritis, BMI 39 Obesity Post-op Diagnosis: Same Procedure: Complex Right TKR Surgeon: Denisha Villa MD Museum Tour Guide: Marlene RAJPUT Anesthesia Type: Spinal EBL: 150 ml Fluids: Per anesthesia record UOP: Per anesthesia record Implants: Rosalva 8 PS Persona Tivanium femur, D Right tibia with 30mm stem, 10mm PS Poly, 32 round patella Specimens: None Drains: None Complications: None Condition: Stable, awake, taken to recovery INDICATIONS: This patient is a 74-year-old female who has failed conservative management of knee arthritis . I discussed the risks and benefits of total knee arthroplasty with the patient and they elected to proceed. I have discussed the risks and benefits with regard to infection, bleeding complications, nerve damage, nonunion, failure of hardware, DVT, PE and other general orthopedic issues. The patient understood this discussion and elected to proceed. TECHNIQUE: On day of my operation, the patient was met in the pre-op area. I confirmed that the patient's right leg was the appropriate leg and marked it in concordance with the patient. The patient was then taken back to the operating room. A sign in was performed to confirm we had the correct patient. The patient was placed supine on the OR bed. All extremities were appropriately padded. The operative leg then had a thigh tourniquet placed on it high on the thigh. The operative lower extremity was then prepped and draped in a sterile manner with chloroprep and ioband. Timeout was performed prior to the procedure to confirm we had the correct patient, we were working on the correct leg and all equipment necessary was present. Preoperative antibiotic had been given and x-rays were visible. There were no concerns from any member of the operative team. Tranexamic acid was given. I then turned my attention to the patient's operative leg. An approx. 6 inch incision was made over the midline of the knee. I dissected down to the fascia and then medial and lateral flaps were raised. The arthrotomy was marked for later reapproximation. A midvastus arthrotomy was then created. The medial periosteal sleeve was raised off the proximal tibia. The infrapatellar fat pad was removed. The synovium off the distal anterior aspect of the femur was removed. The anterior of the lateral meniscus remanant was removed. A nenita retractor was used to sublux the patella lateral and the knee flexed. [place]'s line (WSL) was marked with a bovie cautery. A drill was used to enter the femoral canal 2 mm medial to WSL and anterior to the PCL insertion. The medullary contents were removed with suction. An IM willie was placed into the femur and a 5 degree valgus cut measured. The distal cutting block was pinned into position. The distal osteotomy was performed. The ACL and PCL were then released if present and the tibia subluxed forward. An extramedullary guide was used to measure a flat cut of the tibia. The appropriate depth was determined and the proximal tibia cutting block pinned in place. A saw was used to perform the tibial osteotomy. All colette pieces were removed. A spacer block was then used to confirm symmetric extension gaps and if necessary soft tissue released were performed. In this patient soft tissue released posterior capsule. The femur was then reexposed and a sized for this patient. The femoral rotation was set perpendicular to WSL and a flexion block used to confirm appropriate flexion gap creation. The 4-way cutting block was pinned into position. The anterior, posterior, anterior chamfer and posterior chamfer cuts were performed. The colette pieces were removed. No notching was present on the femur. A laminar assembly line upholsterer was placed lateral which allowed removal of the medial meniscus and posteromedial osteophytes. The laminar assembly line upholsterer was then placed medial and the ACL/PCL, lateral meniscus, and posterolateral osteophytes removed. A spacer block was used to confirm appropriate alignment and flexion gap balance with the extension gap. The laminar assembly line upholsterer was then placed medial and the ACL/PCL, lateral meniscus, and posterolateral osteophytes removed. A spacer block was used to confirm appropriate alignment and flexion gap balance with the extension gap. No notching was present on the femur. The tibia was brought forward and sized. The tray was pinned into position in the appropriate rotation. The drill and keel were used to fashion the bone for the tibial tray. A trial tray was placed. A trial femur was placed. The knee was reduced with a trial poly. Stability was excellent with good balance of the flexion and extension gap. The patella was then everted and held with two mauro's and a sweetheart clamp. The prepatellar thickness was measured at 24 mm. An oscillating saw was used to make a flat osteotomy of the patella. The Cut thickness of the patella was 14mm. It was then sized and prepped. A lateral release was not needed. The patella tracked well. The trial components were removed. The back of the knee was checked for bleeding and hemostasis achieved. The tourniquet was inflated. The colette surfaces were irrigated with pulse lavage to remove fat and blood debris. Cement was mixed on the back table. It was applied to the components. Cement was then applied to the tibia and the tibial component cemented into the appropriate position. The femur was then cemented in a similar technique. Excess cement was removed with a [place]. The poly was placed into position and confirmed to be stable. Once the cement was dry the tourniquet was let down. Tourniquet time was 20 minutes. Hemostasis was achieved. Dilute betadine was lavaged through the knee after a 3 minute soak to help prevent infection. Then antibiotic powder was placed into the knee. Periarticular anesthetic was infiltrated into the soft tissues including the posterior capsule. The arthrotomy was closed proximally with 1-Vicryl and then run with a barbed #2 Quill suture followed by closure of the deep fat with 0- Vicryl and closure of the subcutaneous fat with 2-0 Monocryl in a buried interrupted fashion followed by closure of the skin with 3-0 Monocryl and dermabond. This was followed by heavy cotton Johnson dressing and [place] bandage. All needle and sponge counts were correct. The patient was then awakened from general anesthetic, placed on the transport bed, and taken back to recovery. I was present for all portions of the procedure. No resident was available to help with this surgery and so Marlene RAJPUT was employed as a surgical services tech to provide retraction of critical neurovascular structures and provide the appropriate exposure needed to perform this complex procedure. Both my hands are necessary for this procedure so the help of the assistant printer floor covering was invaluable. Furthermore the assistant printer floor covering needs to control three retractors to safely protect the critical soft tissues in the joint. Complexity Case was off added complexity due to patient s obesity with a BMI of 39. We needed additional time for positioning, exposure, handling of the soft tissues, management of limb, positioning of retractors and additional time for complex multilayer closure. This case required 25% more effort and time due to the patient's size. FOLLOWUP: The Patient will be WBAT on the operative leg with immediate initiation of PT and ROM work. The DVT prophylaxis will be aspirin BID. I will follow the patient while The Patient is in-house. I spoke with the patient s family after the procedure and answered all questions. The patient will receive 24 hours of prophylactic antibiotics as well. Denisha Villa MD at 1327 Addendum 1: 12/06/24 1127 by Denisha Villa MD Prior to final closure of the arthrotomy, 400 mg of Zynrelef (14ml) was injected intra-articularly along the medial lateral gutters as recommended by vp of marketing. This product has been FDA approved and is clinically indicated to provide postoperative anesthesia for up to 72 hours in patient undergoing joint placement. This is part of a multi modal anesthesia program to facilitate discharge, allow early mobilization and increase functional recovery by minimizing risk of delayed mobilization and poor pain control at 1127 RPT #:[id number] END OF REPORT [facility] 2024-08-20 12:46:00 [facility] ([facility]) Discharge Summary REPORT#:[id number] REPORT STATUS: Signed REPORT INITIALIZATION DATE:08/20/24 TIME: 1245 PATIENT: LEONA GLASS UNIT #: [id number] ROOM/BED: Y.O21-A : 52 AGE: 74 SEX: F ATTEND: Denisha Villa MD ADM AUTHOR: Marlene Truong REPT SERVICE DT/TIME: 08/20/24 1246 * ALL edits or amendments must be made on the electronic/computer document * General Information Discharge date: 08/20/24 Discharge diagnosis: s/p knee arthroplasty Hospital course: Discharge Diagnosis: Left Knee Degenerative Disease Procedure: Left Knee Arthroplasty Hospital Course and Findings The patient underwent the procedure without incident. Findings were significant for degenerative disease of the knee. The patient was hemodynamically and medically monitored during the postoperative period. Anticoagulation was instituted for postoperative DVT prophylaxis. The patient was progressively able to tolerate PO pain medications and the appropriate diet. Physical therapy was instituted, with a progressive ability to ambulate and perform exercises. The patient was eventually deemed stable and safe for discharge. Despite factors which projected a longer hospital stay, the patient fulfilled criteria for earlier than expected discharge, including control of pain, early mobilization with therapy, and a stable hemodynamic status. At discharge, the patient was comfortable, with a controlled pain level. There were no chest or abdominal symptoms present. Discharge physical examination demonstrated stable vital signs and no acute distress. The patient had an intact wound with no significant drainage, and no calf tenderness and a negative Talon's sign bilaterally. There were no neurologic or vascular deficits or changes from the preoperative state. Disposition: Discharged to home Discharge Condition: Stable Instructions: Instruction sheet given to patient Activity: Ambulate with assistance, with weight-bearing as instructed in the hospital. Diet: As per preoperatively Prescriptions 1. Pain Medications: As per discharge prescription, with progressive weaning as pain decreases 2. Anticoagulation: As per discharge prescription, or PreOp anticoagulant, as discussed with patient 3. Physical Therapy: Will undergo PT for gait training, mobilization, euwty-ls-jblrib, and strengthening. Patient was informed to that they need to arrange for therapy as quickly as possible. The importance of early advancement of ybtpn-fw-mjjjyc with home exercises, and physical therapy was stressed to the patient. Follow-up Appointment: Patient instructed to arrange appointment for an office visit in 2 weeks Discharge Instructions PCP )( Discharge to: Home/Self Care Discharge Instructions Additional Discharge Routines: Wound/Dressing Care, Add. instructions )( Diet: Regular )( Wound/dressing care: Leave dressing in place )( Additional instructions: see handout Follow-up Appointments Attending Physician: Attending Physician: Denisha Villa MD Attending physician follow up timeframe: In 1-2 weeks Special instructions: CALL SURGEONS OFFICE TO SCHEDULE POSTOP VISIT at 1247 at 1025 RPT #:[id number] END OF REPORT [facility] 2024-08-20 07:51:00 [facility] ([facility] DT Operative Note REPORT#:[id number] REPORT STATUS: Signed REPORT INITIALIZATION DATE:08/20/24 TIME: 750 PATIENT: LEONA GLASS UNIT #: [id number] ROOM/BED: [address] : [birth year] AGE: 74 SEX: F ATTEND: Denisha Villa MD ADM AUTHOR: Denisha Villa MD REPT SERVICE DT/TIME: 08/20/24750 * ALL edits or amendments must be made on the electronic/computer document * See Addendum Operative Report Operative Note Note: ORTHO OP NOTE Patient Name: Leona Glass : 54 DOS: 08/20/24 Pre-op Diagnosis: Left Knee Osteoarthritis, BMI 38 Obesity Post-op Diagnosis: Same Procedure: Complex Left TKR Surgeon: Denisha villa MD Museum Tour Guide: Marlene RAJPUT Anesthesia Type: Spinal EBL: 75 ml Fluids: Per anesthesia record UOP: Per anesthesia record Implants: Rosalva Persona Tivanium 8 Femur Rosalva Persona Tibia Tray E with 30mm stem extension Rosalva 10mm Poly Rosalva round patella size 32 Specimens: None Drains: None Complications: None Condition: Stable, awake, taken to recovery INDICATIONS: This patient is a 74-year-old female who has failed conservative management of knee arthritis . I discussed the risks and benefits of total knee arthroplasty with the patient and they elected to proceed. I have discussed the risks and benefits with regard to infection, bleeding complications, nerve damage, nonunion, failure of hardware, DVT, PE and other general orthopedic issues. The patient understood this discussion and elected to proceed. TECHNIQUE: On day of my operation, the patient was met in the pre-op area. I confirmed that the patient's left leg was the appropriate leg and marked it in concordance with the patient. The patient was then taken back to the operating room. A sign in was performed to confirm we had the correct patient. The patient was placed supine on the OR bed. All extremities were appropriately padded. The operative leg then had a thigh tourniquet placed on it high on the thigh. The operative lower extremity was then prepped and draped in a sterile manner with chloroprep and ioband. Timeout was performed prior to the procedure to confirm we had the correct patient, we were working on the correct leg and all equipment necessary was present. Preoperative antibiotic had been given and x-rays were visible. There were no concerns from any member of the operative team. Tranexamic acid was given. I then turned my attention to the patient's operative leg. An approx. 6 inch incision was made over the midline of the knee. I dissected down to the fascia and then medial and lateral flaps were raised. The arthrotomy was marked for later reapproximation. A medial parapatellar arthrotomy was then created. The medial periosteal sleeve was raised off the proximal tibia. The infrapatellar fat pad was removed. The synovium off the distal anterior aspect of the femur was removed. The anterior of the lateral meniscus remanant was removed. A nenita retractor was used to sublux the patella lateral and the knee flexed. [place]'s line (WSL) was marked with a bovie cautery. A drill was used to enter the femoral canal 2 mm medial to WSL and anterior to the PCL insertion. The medullary contents were removed with suction. An IM willie was placed into the femur and a 5 degree valgus cut measured. The distal cutting block was pinned into position. The distal osteotomy was performed. The ACL and PCL were then released if present and the tibia subluxed forward. An extramedullary guide was used to measure a flat cut of the tibia. The appropriate depth was determined and the proximal tibia cutting block pinned in place. A saw was used to perform the tibial osteotomy. All colette pieces were removed. A spacer block was then used to confirm symmetric extension gaps and if necessary soft tissue released were performed. In this patient soft tissue released IT band and popliteus. The femur was then reexposed and a sized for this patient. The femoral rotation was set perpendicular to WSL and a flexion block used to confirm appropriate flexion gap creation. The 4-way cutting block was pinned into position. The anterior, posterior, anterior chamfer and posterior chamfer cuts were performed. The colette pieces were removed. No notching was present on the femur. A laminar assembly line upholsterer was placed lateral which allowed removal of the medial meniscus and posteromedial osteophytes. The laminar assembly line upholsterer was then placed medial and the ACL/PCL, lateral meniscus, and posterolateral osteophytes removed. A spacer block was used to confirm appropriate alignment and flexion gap balance with the extension gap. The laminar assembly line upholsterer was then placed medial and the ACL/PCL, lateral meniscus, and posterolateral osteophytes removed. A spacer block was used to confirm appropriate alignment and flexion gap balance with the extension gap. No notching was present on the femur. The tibia was brought forward and sized. The tray was pinned into position in the appropriate rotation. The drill and keel were used to fashion the bone for the tibial tray. A trial tray was placed. A trial femur was placed. The knee was reduced with a trial poly. Stability was excellent with good balance of the flexion and extension gap. The patella was then everted and held with two mauro's and a sweetheart clamp. The prepatellar thickness was measured at 25 mm. An oscillating saw was used to make a flat osteotomy of the patella. The Cut thickness of the patella was 15mm. It was then sized and prepped. A lateral release was needed and performed inside to out. The patella tracked well. The trial components were removed. The back of the knee was checked for bleeding and hemostasis achieved. The tourniquet was inflated. The colette surfaces were irrigated with pulse lavage to remove fat and blood debris. Cement was mixed on the back table. It was applied to the components. Cement was then applied to the tibia and the tibial component cemented into the appropriate position. The femur was then cemented in a similar technique. Excess cement was removed with a [place]. The poly was placed into position and confirmed to be stable. Once the cement was dry the tourniquet was let down. Tourniquet time was 20 minutes. Hemostasis was achieved. Dilute betadine was lavaged through the knee after a 3 minute soak to help prevent infection. Then antibiotic powder was placed into the knee. Periarticular anesthetic was infiltrated into the soft tissues including the posterior capsule. The arthrotomy was closed proximally with 1-Vicryl and then run with a barbed #2 Quill suture followed by closure of the deep fat with 0- Vicryl and closure of the subcutaneous fat with 2-0 Monocryl in a buried interrupted fashion followed by closure of the skin with 3-0 Monocryl and dermabond. This was followed by heavy cotton Johnson dressing and [place] bandage. All needle and sponge counts were correct. The patient was then awakened from general anesthetic, placed on the transport bed, and taken back to recovery. I was present for all portions of the procedure. No resident was available to help with this surgery and so Marlene RAJPUT was employed as a surgical services tech to provide retraction of critical neurovascular structures and provide the appropriate exposure needed to perform this complex procedure. Both my hands are necessary for this procedure so the help of the assistant printer floor covering was invaluable. Furthermore the assistant printer floor covering needs to control three retractors to safely protect the critical soft tissues in the joint. Complexity Case was off added complexity due to patient s obesity with a BMI of 38. We needed additional time for positioning, exposure, handling of the soft tissues, management of limb, positioning of retractors and additional time for complex multilayer closure. This case required 25% more effort and time due to the patient's size. FOLLOWUP: The Patient will be WBAT on the operative leg with immediate initiation of PT and ROM work. The DVT prophylaxis will be aspirin BID. I will follow the patient while The Patient is in-house. I spoke with the patient s family after the procedure and answered all questions. The patient will receive 24 hours of prophylactic antibiotics as well. Denisha Villa MD at 1046 Addendum 1: 08/20/24 1207 by Denisha Villa MD Prior to final closure of the arthrotomy, 400 mg of Zynrelef (14ml) was injected intra-articularly along the medial lateral gutters as recommended by vp of marketing. This product has been FDA approved and is clinically indicated to provide postoperative anesthesia for up to 72 hours in patient undergoing joint placement. This is part of a multi modal anesthesia program to facilitate discharge, allow early mobilization and increase functional recovery by minimizing risk of delayed mobilization and poor pain control at 1207 RPT #:[id number] END OF REPORT [facility]ATO 2024-06-23 09:37:35 Spoke with pt & reviewed - she verbalized understanding. Neelam Hernandez RN [facility] 2024-06-23 09:02:45 Left msg for pt to return my call. Neelam Hernandez RN [facility]
[2024-12-17] MEDS ORDERED: ONDANSETRON 4 MG/2 ML VIAL ONE (21:36)
[2024-12-17] MEDS ORDERED: NA CHLORIDE 0.9% 1,000 ML ONE (21:37)
--- NOTE | 2024-12-17 22:00 | RAD REPORT ---
EXAM: Chest Single View HISTORY: 74 years Female COUGH COMPARISON: 09/18/2022 FINDINGS: LUNGS/PLEURA: The lungs are clear. No pleural effusions or pneumothorax. No pulmonary edema. Calcifie d left midlung nodule. CARDIAC/MEDIASTINUM: The cardiac silhouette is within normal limits. UPPER ABDOMEN: No significant abnormality. BONES: No acute abnormality. LINES/TUBES/OTHER: N/A IMPRESSION: No evidence of acute cardiopulmonary disease. No significant change from prior.
[2024-12-17 22:10] LABS: D-Dimer 5.841 FEUug/mL (0-0.500); PT Prothrombin Time 12.6 SECONDS (10-13.0); Protime INR 1.12
--- NOTE | 2024-12-17 22:11 | RAD REPORT ---
EXAMINATION: Head Brain Wo Cont CLINICAL INDICATION: Female, 74 years old.HEADACHE TECHNIQUE: Axial CT images from the skull base to the vertex without intravenous contrast. Coronal an d sagittal reformatted images were created from the data set. One or more of the following dose reduction techniques were used: Automated exposure control, adjustment of the mA and/or kV according to patient size, and/or iterative reconstruction. Unless otherwise specified, incidental findings do not require dedicated imaging follow-up. [id number]. COMPARISON: No prior exams FINDINGS: INTRACRANIAL: No acute intracranial hemorrhage. No acute large vascular territory infarct. No hydroce phalus. No mass effect or midline shift. No significant white matter disease. VASCULATURE: No visualized abnormalities in the arteries or dural venous sinuses. SCALP/SKULL: No calvarial fracture identified. No acute soft tissue abnormality. SINUSES: The visualized paranasal sinuses are mostly clear. No significant mastoid fluid. IMPRESSION: No acute intracranial abnormality.
[2024-12-17 22:14] LABS: Absolute Lymphocytes (CBC) 1.2 K/uL (0.7-4.9); Hematocrit 30.5 % (36.0-45.0); Hemoglobin 10.3 g/dL (12.0-15.0); MCH 29.2 pg (27.0-35.0); MCHC 33.9 g/dL (32.0-36.0); MCV 86.1 fL (80-100); MPV 8.0 fL (7.6-11.3); Nucleated RBC Absolute Count 0.0 (0-0); Nucleated Red Blood Cells % 0.1 % (0-0); RBC Red Blood Cell Count 3.54 M/uL (3.86-4.86); White Blood Count 6.30 thou/uL (4.3-10.9)
[2024-12-17 22:15] LABS: Sqamous Epithelial <5 /HPF (None Seen); Urine Culture Reflex Order NOT NEEDED; Urine Microscopic Reflex YN ORDER UMIC; Urine Yeast (Budding) Trace /HPF (None Seen)
[2024-12-17 22:22] LABS: ALT/SGPT 15 U/L (13-56); AST/SGOT 12 U/L (15-37); Albumin 2.9 g/dL (3.4-5.0); Albumin/Globulin Ratio 0.8 (1.1-1.8); Alkaline Phosphatase 90 U/L (45-117); Anion Gap 6.8 mEq/L (5.0-15.0); BUN Blood Urea Nitrogen 12 mg/dL (7-18); Globulin 3.6 g/dL (2.3-3.5); Glucose Level 110 mg/dL (74-106); Lipase 75 U/L (13-75); Magnesium 1.8 mg/dL (1.6-2.4); NT PRO-BNP 889 pg/mL (<125); Potassium 3.8 mEq/L (3.5-5.1); Troponin High Sensitivity 9.8 pg/mL (<58.9)
[2024-12-17 22:23] LABS: Bilirubin Indirect, Calculated 0.1 mg/dL (0.2-0.8)
--- NOTE | 2024-12-18 00:34 | RAD REPORT ---
EXAM DESCRIPTION: Extrem Venous W Compress Lafred CLINICAL HISTORY: 74 years Female, PAIN TECHNIQUE: Sagittal and axial vizcaino scale and color Doppler images, including compression images, obta ined of the bilateral common femoral, femoral, popliteal, posterior tibial veins. Doppler wave forms from the segments also recorded. Doppler and color Doppler interrogation performed of the sap henofemoral junction. COMPARISON: None. FINDINGS: Color Doppler and vizcaino scale imaging of the bilateral lower extremity deep venous structures demonstr ate no evidence of intraluminal thrombus. Normal compressibility of all deep venous segments. Normal phasic spectral wave forms, which demonstrate normal augmentation response and normal directio nal flow. Calf veins: Venous flow demonstrated in the imaged segments. Other: Small right García's cyst measuring 0.9 x 1.2 x 2.0 cm. IMPRESSION: 1. Negative for bilateral lower extremity deep venous thrombosis. 2. Small right García's cyst. Electronically signed by: Cecil Hedrick MD 12/18/2024 12:04 AM CDT RP 1P Due to temporary technical issues with the PACS/[employer] reporting system, reports are being annalise d by the in-house radiologist without review as a courtesy to ensure prompt reporting the interpreting radiologist is fully responsible for the content of the report. Transcribed Date/Time: 12/18/2024 12:34 AM
--- NOTE | 2024-12-18 00:35 | RAD REPORT ---
EXAM DESCRIPTION: Chest For Pe Angio CLINICAL HISTORY: 74 years Female, CHEST PAIN TECHNIQUE: Helical CT axial images of the thorax with IV contrast. Multiplanar reconstruction. MIP re construction plus or minus 3D image processing was also performed. This exam was performed according to our departmental dose-optimization program, which includes automated exposure control, a djustment of the mA and/or kV according to patient size and/or use of iterative reconstruction technique. COMPARISON: None. FINDINGS: VASCULAR: Pulmonary arteries are patent bilaterally without filling defects or intraluminal thrombus. Thoracic aorta is normal in caliber without aneurysm. The pulmonary vasculature demonstrates no significant dilatation. LUNGS: Right middle lobe subsegmental atelectasis in mild left basilar subsegmental atelectasis. No confluent areas of acute consolidation. Left upper lobe subcentimeter calcified granuloma. No pulmonary masses or suspicious nodules. MEDIASTINUM: Calcified left hilar lymph nodes. No abnormally enlarged mediastinal or hilar lymph no fawn. PLEURA: Small right and minimal left pleural effusion. No pneumothorax. CARDIAC: Normal heart size. No pericardial effusion. CHEST WALL: Chest wall is intact. No abnormal axillary lymphadenopathy. BONES: No suspicious osseous lytic or blastic lesions seen. UPPER ABDOMEN: The visualized upper abdomen demonstrates no acute abnormality. IMPRESSION: 1. No acute pulmonary embolus. 2. Small right and minimal left pleural effusion. 3. Right lower lobe and left basilar subsegmental atelectasis. Electronically signed by: Cecil Hedrick MD 12/18/2024 12:20 AM CDT 1P Due to temporary technical issues with the PACS/[employer] reporting system, reports are being annalise d by the in-house radiologist without review as a courtesy to ensure prompt reporting the interpreting radiologist is fully responsible for the content of the report. Transcribed Date/Time: 12/18/2024 12:34 AM
--- NOTE | 2024-12-18 00:43 | RAD REPORT ---
EXAM DESCRIPTION: Knee Right 3 View CLINICAL HISTORY: 74 years Female, PAIN TECHNIQUE: 3 views COMPARISON: None. FINDINGS: BONES/JOINT: Status post total right knee arthroplasty. No acute fracture or dislocation. Joint space s are unremarkable. SOFT TISSUES: No suprapatellar joint effusion. No radiopaque foreign body. IMPRESSION: 1. No acute fracture. 2. Status post total right knee arthroplasty. Electronically signed by: Cecil Hedrick MD 12/18/2024 12:05 AM CDT 1P Due to temporary technical issues with the PACS/[employer] reporting system, reports are being annalise d by the in-house radiologist without review as a courtesy to ensure prompt reporting the interpreting radiologist is fully responsible for the content of the report. Transcribed Date/Time: 12/18/2024 12:42 AM
--- NOTE | 2024-12-18 00:54 | EDPHYS ---
Physician Documentation [facility] Name: Leona Perez Age: 74 yrs Sex: Female : 1950 Arrival Date: 12/17/2024 Time: 21:08 Bed 7 Private MD: POLLY Physician Gideon Galindo HPI: 12/17 23:01 This 74 yrs old Female presents to ER via Ambulatory with complaints of High jessiac Blood Pressure, Headache, Nausea. 23:01 The patient has elevated blood pressure and discovered this at home, with a home jessica device. Onset: The symptoms/episode began/occurred just prior to arrival, today. Modifying factors: The symptoms are aggravated by activity, The symptoms are alleviated by remaining still. Associated signs and symptoms: The patient has no apparent associated signs or symptoms. Severity of symptoms: At its worst the blood pressure was moderate, in the emergency department the blood pressure is improved, moderately. The patient has experienced similar episodes in the past, a few times. Historical: - Allergies: 21:21 No Known Allergies; me1 - PMHx: 21:21 Depression; Hypertensive disorder; Hypercholesterolemia; me1 - PSHx: 21:21 Operative procedure on knee; me1 - Immunization history:: Adult Immunizations up to date. - Infectious Disease History:: Denies. - Social history:: Smoking status: Patient denies any tobacco usage or history of. ROS: 23:03 Constitutional: Negative for fever, chills, and weight loss, Eyes: Negative for injury, jessica pain, redness, and discharge, ENT: Negative for injury, pain, and discharge, Neck: Negative for injury, pain, and swelling, Cardiovascular: Negative for chest pain, palpitations, and edema, Respiratory: Negative for shortness of breath, cough, wheezing, and pleuritic chest pain, Abdomen/GI: Negative for abdominal pain, nausea, vomiting, diarrhea, and constipation, Back: Negative for injury and pain, : Negative for injury, bleeding, discharge, and swelling, Skin: Negative for injury, rash, and discoloration, Psych: Negative for depression, anxiety, suicide ideation, homicidal ideation, and hallucinations, Allergy/Immunology: Negative for hives, rash, and allergies, Endocrine: Negative for neck swelling, polydipsia, polyuria, polyphagia, and marked weight changes, Hematologic/Lymphatic: Negative for swollen nodes, abnormal bleeding, and unusual bruising, 23:03 MS/extremity: Positive for pain, of the right leg, 2 weks knee replacement, Exam: 23:03 Constitutional: This is a well developed, well nourished patient who is awake, alert, jessica and in no acute distress. Head/Face: Normocephalic, atraumatic. Eyes: Pupils equal round and reactive to light, extra-ocular motions intact. Lids and lashes normal. Conjunctiva and sclera are non-icteric and not injected. Cornea within normal limits. Periorbital areas with no swelling, redness, or edema. ENT: Nares patent. No nasal discharge, no septal abnormalities noted. Tympanic membranes are normal and external auditory canals are clear. Oropharynx with no redness, swelling, or masses, exudates, or evidence of obstruction, uvula midline. Mucous membranes moist. Neck: Trachea midline, no thyromegaly or masses palpated, and no cervical lymphadenopathy. Supple, full range of motion without nuchal rigidity, or vertebral point tenderness. No Meningismus. Chest/axilla: Normal chest wall appearance and motion. Nontender with no deformity. No lesions are appreciated. Cardiovascular: Regular rate and rhythm with a normal S1 and S2. No gallops, murmurs, or rubs. Normal PMI, no JVD. No pulse deficits. Respiratory: Lungs have equal breath sounds bilaterally, clear to auscultation and percussion. No rales, rhonchi or wheezes noted. No increased work of breathing, no retractions or nasal flaring. Abdomen/GI: Soft, non-tender, with normal bowel sounds. No distension or tympany. No guarding or rebound. No evidence of tenderness throughout. Back: No spinal tenderness. No costovertebral tenderness. Full range of motion. Skin: Warm, dry with normal turgor. Normal color with no rashes, no lesions, and no evidence of cellulitis. Neuro: Awake and alert, GCS 15, oriented to person, place, time, and situation. Cranial nerves II-XII grossly intact. Motor strength 5/5 in all extremities. Sensory grossly intact. Cerebellar exam normal. Normal gait. Psych: Awake, alert, with orientation to person, place and time. Behavior, mood, and affect are within normal limits. 23:03 ECG was reviewed by the Attending Physician. 23:03 Musculoskeletal/extremity: ROM: no acute changes, intact in all extremities, full active range of motion, Circulation is intact in all extremities. Sensation intact. Compartment Syndrome exam of affected extremity: is normal. DVT Exam: negative Homans' sign noted on exam, no appreciated bluish discoloration, pain, swelling, tenderness, erythema, 12/18 01:37 ECG was reviewed by the Attending Physician. [facility] Vital Signs: 12/17 21:19 BP 147 / 89; Pulse 65; Resp 16; Temp 98.3; Pulse Ox 97% ; Weight 99.79 kg; Height 5 ft. me1 4 in. ; Pain 5/10; 22:19 BP 112 / 66; Pulse 58; Resp 18; Pulse Ox 98% on R/A; kd3 23:21 BP 129 / 95; Pulse 63; Resp 18; Pulse Ox 97% ; cp4 12/18 00:29 BP 130 / 105; Pulse 66; Resp 18; Pulse Ox 97% ; cp4 01:38 BP 195 / 92; Pulse 74; Resp 18; Pulse Ox 98% ; cp4 03:18 BP 181 / 85; Pulse 77; Resp 18; Pulse Ox 97% on R/A; kd3 03:55 BP 174 / 74; Pulse 78; Resp 18; Pulse Ox 99% on R/A; kd3 12/17 21:19 Body Mass Index 37.76 (99.79 kg, 162.56 cm) [facility] [place]/17 21:19 Pain Scale: Adult [facility] Kumar Coma Score: 01:15 Eye Response: spontaneous(4). Motor Response: obeys commands(6). Verbal Response: [facility] oriented(5). Total: 15. MDM: 12/17 21:17 Medical Screening Exam initiated [facility] 12/18 01:15 Data reviewed: vital signs, nurses notes, lab test result(s), EKG, radiologic studies, [facility] CT scan, doppler, plain films. Consideration of Admission/Observation Escalation of care including admission/observation considered. Historians other than the Patient: Spouse/Significant Other: well informed. Care significantly affected by the following chronic conditions: Hypertension, Obesity, depression, high chlesterol. 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 12/17 21:27 Order name: Basic Metabolic Panel; Complete Time: 22:49 [facility] 12/17 20: Order name: CBC with Diff; Complete Time: 22:49 12/17 21:27 Order name: LFT's; Complete Time: 22:49 12/17: Order name: Magnesium; Complete Time: 22:49 12/17 21: Order name: NT PRO-BNP; Complete Time: 22:49 12/17 21: Order name: PT-INR; Complete Time: 22:49 12/17 21: Order name: Troponin HS; Complete Time: 22:49 jessica 12/17 21: Order name: UA Rfx Kranthi Cult if indicated; Complete Time: 22:49 [facility] 12/17 21: Order name: Lipase; Complete Time: 22:49 jessica 12/17 21: Order name: D-Dimer; Complete Time: 22:49 [facility] 12/17 22:55 Order name: Troponin High Sensitivity: 1200 midnight; Complete Time: 00:03 12/18 02:40 Order name: CBC with Automated Diff EDMS 12/18 02:40 Order name: CBC with Automated Diff EDMS 12/17 21:27 Order name: XRAY Chest (1 view); Complete Time: 22:49 [facility] 12/17 21:27 Order name: CT Head Brain wo Cont; Complete Time: 22:49 12/17 22:55 Order name: US Extremity Venous W Compression Alfred 12/17 22:55 Order name: CT Chest For PE Angio 12/17 23:01 Order name: Knee Right 3 View XRAY 12/17 21:27 Order name: EKG; Complete Time: 21:28 12/17 21:27 Order name: Cardiac monitoring; Complete Time: 21:46 jessica 12/17 20: Order name: EKG - Nurse/Tech; Complete Time: 21:46 [facility] 12/17 20:27 Order name: IV Saline Lock; Complete Time: 21:46 12/17 21:27 Order name: Labs collected and sent; Complete Time: 21:46 12/17: Order name: O2 Per Protocol; Complete Time: 21:46 jessica 12/17 21:27 Order name: O2 Sat Monitoring; Complete Time: 21:46 jessica 12/18 01:21 Order name: EKG - Nurse/Tech; Complete Time: 01:32 [facility] EC/22 23:03 Rate is 64 beats/min. Rhythm is regular. QRS [place] is Normal. OK interval is normal. QRS jessica interval is normal. QT interval is normal. No Q waves. T waves are Normal. No ST changes noted. Clinical impression: NSR w/ Non-specific ST/T Changes and No evidence of ischemia. Interpreted by me. 12/18 01:37 Rate is 63 beats/min. Rhythm is regular. QRS [place] is Normal. OK interval is normal. QRS jessica interval is normal. QT interval is normal. No Q waves. T waves are Normal. No ST changes noted. Clinical impression: Normal ECG and No evidence of ischemia. Interpreted by me. Reviewed by me. Administered Medications: 12/17 21:46 Drug: NS 0.9% IV 1000 ml IV at 1000 ml once; to be given as a bolus over 60 minutes kd3 Route: IV; Rate: 1000 ml; Site: left antecubital; 21:46 Drug: Ondansetron IVP 8 mg IVP once; over 2 minutes Route: IVP; Site: left antecubital; kd3 22:59 Follow up: Response: No adverse reaction [facility] 12/18 01:10 Drug: Promethazine IM 25 mg IM once; Give IV in 100 mL of NS. Route: IM; Site: Other; cp4 03:49 Drug: diphenhydrAMINE IVP 25 mg IVP once Route: IVP; Site: left antecubital; kd3 03:49 Drug: metoCLOPramide IVP 10 mg IVP once; over 1 to 2 minutes Route: IVP; Site: left kd3 antecubital; Disposition Summary: 12/18/24 01:33 Hospitalization Ordered Notes: Hospitalization Status: Observation jessica Provider: Thee Flores cha Location: Telemetry/MedSurg (observation)(12/18/24 01:33) jessica Condition: Fair(12/18/24 01:33) jessica Problem: new(12/18/24 01:33) jessica Symptoms: have improved(12/18/24 01:33) jessica Bed/Room Type: Standard jessica Room Assignment: 406(12/18/24 03:00) sp Diagnosis - Essential (primary) hypertension(12/18/24 01:33) jessica - Edema, unspecified jessica - Nausea(12/18/24 01:33) jessica - Pleural effusion in other conditions classified elsewhere - bilateral jessica small(12/18/24 01:33) - Atelectasis(12/18/24 01:33) jessica - Pain in right knee - sp 2 weeks , replacement jessica Forms: - Medication Reconciliation Form jessica - SBAR form jessica - Leadership Thank You Letter jessica Signatures: Dispatcher [employer] EDMS Gideon Galindo MD MD cha Pinkerton, Shawna sp Doucette, Kyli RN RN kd3 Nikki Robles RN RN me1 Karen Saenz cp4 Corrections: (The following items were deleted from the chart) 12/17 21:28 21:28 Head Brain Wo Cont+CT.RAD.BRZ ordered. EDMS EDMS 21:28 21:28 D-DIMER+COAG.LAB.BRZ ordered. EDMS EDMS 12/18 01:30 00:53 Home jessica jessica : 00:53 new jessica jessica : 00:53 have improved jessica jessica : 00:53 Stable jessica jessica : 00:53 Essential (primary) hypertension jessica jessica : 00:53 Pain in right leg - sp knee replacement jessica jessica : 00:53 Pleural effusion in other conditions classified elsewhere jessica jessica :30 00:53 Atelectasis jessica jessica :30 01:18 Nausea jessica jessica 03:00 01:33 jessica sp 03:38 00:52 IS+RC.RAD.BRZ ordered. EDMS EDMS
--- NOTE | 2024-12-18 00:54 | ER ---
Nurse's Notes [facility] Name: Leona Perez Age: 74 yrs Sex: Female : 1950 Arrival Date: 12/17/2024 Time: 21:08 Bed 7 Private MD: Diagnosis: Essential (primary) hypertension;Edema, unspecified;Nausea;Pleural effusion in other conditions classified elsewhere-bilateral small;Atelectasis;Pain in right knee-sp 2 weeks , replacement Presentation: 12/17 21:19 Chief complaint: Patient states: BP elevated all day, took bp meds but still 180s/90s. me1 This evening developed a PURDY and nausea. Pain level was 8/10 but patient took a tramadol and pain is 5/10 now. Coronavirus screen: Vaccine status: Patient reports receiving the 2nd dose of the covid vaccine. Ebola Screen: No symptoms or risks identified at this time. Initial Sepsis Screen: Does the patient meet any 2 criteria? No. Patient's initial sepsis screen is negative. Does the patient have a suspected source of infection? No. Patient's initial sepsis screen is negative. Risk Assessment: Do you want to hurt yourself or someone else? Patient reports no desire to harm self or others. Onset of symptoms was December 17, 2024 at 08:00. 21:19 Method Of Arrival: Ambulatory ar1 21:19 Acuity: ZULEIKA 3 me1 Triage Assessment: 22:20 Pain: Pain Also complains of no other associated symptoms. kd3 12/18 01:38 Headache History: Denies prior headaches. General: Appears in no apparent distress. cp4 uncomfortable, Behavior is calm, cooperative, appropriate for age. Pain: Pain began 4 hours ago. Historical: - Allergies: 12/17 21:21 No Known Allergies; me1 - PMHx: 21:21 Depression; Hypertensive disorder; Hypercholesterolemia; me1 - PSHx: 21:21 Operative procedure on knee; me1 - Immunization history:: Adult Immunizations up to date. - Infectious Disease History:: Denies. - Social history:: Smoking status: Patient denies any tobacco usage or history of. Screenin:47 [facility] ED Fall Risk Assessment (Adult) History of falling in the last 3 months, kd3 including since admission No falls in past 3 months (0 pts) Confusion or Disorientation No (0 pts) Intoxicated or Sedated No (0 pts) Impaired Gait No (0 pts) Mobility Assist Device Used No (0 pt) Altered Elimination No (0 pt) Score/Fall Risk Level 0 - 2 = Low Risk Maintained a safe environment. Abuse screen: Denies threats or abuse. Denies injuries from another. Nutritional screening: No deficits noted. Tuberculosis screening: No symptoms or risk factors identified. Assessment: 21:46 General: Appears in no apparent distress. Behavior is calm, cooperative. Pain: Denies kd3 pain. Neuro: Level of Consciousness is awake, alert, obeys commands, Oriented to person, place, time, situation. Cardiovascular: Patient's skin is warm and dry. Respiratory: Airway is patent Trachea midline Respiratory effort is even, unlabored, Respiratory pattern is regular, symmetrical. Vital Signs: 21:19 BP 147 / 89; Pulse 65; Resp 16; Temp 98.3; Pulse Ox 97% ; Weight 99.79 kg; Height 5 ft. me1 4 in. ; Pain 5/10; 22:19 BP 112 / 66; Pulse 58; Resp 18; Pulse Ox 98% on R/A; kd3 23:21 BP 129 / 95; Pulse 63; Resp 18; Pulse Ox 97% ; cp4 08 00:29 BP 130 / 105; Pulse 66; Resp 18; Pulse Ox 97% ; cp4 01:38 BP 195 / 92; Pulse 74; Resp 18; Pulse Ox 98% ; cp4 03:18 BP 181 / 85; Pulse 77; Resp 18; Pulse Ox 97% on R/A; kd3 03:55 BP 174 / 74; Pulse 78; Resp 18; Pulse Ox 99% on R/A; kd3 12/17 21:19 Body Mass Index 37.76 (99.79 kg, 162.56 cm) me1 12/17 21:19 Pain Scale: Adult me1 Hunter Coma Score: 01:15 Eye Response: spontaneous(4). Motor Response: obeys commands(6). Verbal Response: jessica oriented(5). Total: 15. ED Course: 12/17 21:10 Patient arrived in ED. jj6 21:17 Gideon Galindo MD is Attending Physician. [facility] 21:21 Triage completed. me1 21:21 Arm band placed on Patient placed in an exam room. me1 21:25 Brayan, Amanda, RN is Primary Nurse. kd3 21:46 D-Dimer Sent. kd3 21:46 Lipase Sent. kd3 21:46 UA Rfx Kranthi Cult if indicated Sent. kd3 21:46 Basic Metabolic Panel Sent. kd3 21:46 CBC with Diff Sent. kd3 21:46 LFT's Sent. kd3 21:46 Magnesium Sent. kd3 21:46 NT PRO-BNP Sent. kd3 21:46 PT-INR Sent. kd3 21:46 Troponin HS Sent. kd3 21:47 No provider procedures requiring assistance completed. kd3 21:48 Initial lab(s) drawn, by clinical laboratory assistant, sent to lab. Inserted saline lock: 20 gauge in left ts3 antecubital area, using aseptic technique. Blood collected. Flushed with 10 mL NS. 21:48 Urine collected: clean catch specimen, sent to lab. ts3 21:48 EKG done, by cvt tech. reviewed by Gideon Galindo MD. ts3 21:54 XRAY Chest (1 view) In Process Unspecified. EDMS 21:58 CT Head Brain wo Cont In Process Unspecified. EDMS 23:21 US Extremity Venous W Compression Alfred In Process Unspecified. EDMS 23:38 CT Chest For PE Angio In Process Unspecified. EDMS 23:47 Knee Right 3 View XRAY In Process Unspecified. EDMS 12/18 01:18 Arnulfo Hassan MD is Referral Physician. jessica 01:30 Thee Flores MD is Hospitalizing Provider. jessica 03:56 Patient admitted, IV remains in place. kd3 03:57 Patient has correct armband on for positive identification. Provided Education on: kd3 nausea . Administered Medications: 12/17 21:46 Drug: NS 0.9% IV 1000 ml IV at 1000 ml once; to be given as a bolus over 60 minutes kd3 Route: IV; Rate: 1000 ml; Site: left antecubital; 21:46 Drug: Ondansetron IVP 8 mg IVP once; over 2 minutes Route: IVP; Site: left antecubital; kd3 22:59 Follow up: Response: No adverse reaction cp4 12/18 01:10 Drug: Promethazine IM 25 mg IM once; Give IV in 100 mL of NS. Route: IM; Site: Other; cp4 03:49 Drug: diphenhydrAMINE IVP 25 mg IVP once Route: IVP; Site: left antecubital; kd3 03:49 Drug: metoCLOPramide IVP 10 mg IVP once; over 1 to 2 minutes Route: IVP; Site: left kd3 antecubital; Medication: 03:57 VIS not applicable for this client. kd3 Outcome: 00:53 Discharge ordered by . jessica 01:33 Decision to Hospitalize by Provider. jessica 03:56 Admitted to Med/surg accompanied by tech, via wheelchair, room 406, kd3 03:56 Condition: stable 03:56 Discharge instructions given to patient, family, Instructed on the need for admit, Demonstrated understanding of instructions, 03:57 Patient left the ED. kd3 Signatures: Dispatcher [employer] EDGideon Lanza MD MD cha Jeffries, Jennifer jj6 Amanda Schmidt RN RN kd3 Nikki Robles RN RN ar1 Karen Saenz 4 Missy Mueller 3
[2024-12-18] MEDS ORDERED: PROMETHAZINE INJ 25 MG/ML AMP ONE (00:55)
[2024-12-18] MEDS ORDERED: NA CHLORIDE 0.9% 100 ML ONE (01:04)
--- NOTE | 2024-12-18 02:35 | P.HP ---
Certification for Inpatient Patient admitted to: Inpatient With expected LOS: >2 Midnights Practitioner: I am a practitioner with admitting privileges, knowledge of patient current condition, hospital course, and medical plan of care. Services: Services provided to patient in accordance with Admission requirements found in Title 42 Section 412.3 of the Code of Federal Regulations Patient History Date of Service: 12/18/24 Reason for admission: Elevated blood pressure History of Present Illness: 74 yrs old Female with past medical history of hypertension, hyperlipidemia, depression, history of total knee arthroplasty who was brought to ER with high blood pressures and headache and nausea. Patient states that she was having headache and nausea and was checking the blood pressure which has been high all day yesterday which prompted her to come to the ER. Denies any chest pain. No fever or chills. Patient also complains of pain in the lower extremity. Denies any syncopal episodes. The patient was assessed in the ER and is admitted for further management of hypertensive emergency. Allergies No Known Allergies Allergy (Unverified 10/20/15 02:42) Home medications list reviewed: Yes Home Medications: Acetaminophen 2 tab PO Q8H PRN 12/18/24 Aspirin [Aspirin EC 81 MG] 81 mg PO BID 12/18/24 Meloxicam 15 mg PO DAILY PRN 12/18/24 Nifedipine [Nifedipine ER] 30 mg PO DAILY 12/18/24 Oxycodone HCl 5 mg PO Q6H PRN 12/18/24 Pitavastatin Calcium 2 mg PO DAILY 12/18/24 Sertraline HCl 100 mg PO DAILY 12/18/24 Telmisartan 40 mg PO DAILY 12/18/24 Tizanidine HCl 2 mg PO Q8H PRN 12/18/24 Tramadol HCl [Ultram] 50 mg PO Q6H PRN 12/18/24 - Past Medical/Surgical History Past Medical History: Reviewed- Non-Contributory -: Hypertension, hyperlipidemia, depression Past Surgical History: Reviewed- Non-Contributory -: Knee surgery - Family History Family History: Reviewed- Non-Contributory - Social History Smoking Status: Never smoker Review of Systems 10-point ROS is otherwise unremarkable Other: Constitutional: Reports: generalized weakness. Skin: Denies: rash. Allergy/Immun: Denies: rhinorrhea, sneezing. Eyes: Denies: visual loss/blurred. ENT: Denies: earache, nasal congestion. Respiratory: Denies: non productive cough. Cardiovascular: Denies: chest pain, palpitations. GI: Denies: diarrhea, nausea. : Denies: dysuria. Musculoskeletal: Reports: arthritis. Denies: extremity pain. Heme: Denies: bleeding. Endocrine: Denies: polydipsia. Neuro: Reports: dizziness, gait problem, lightheaded, spinning sensation. Psych: Reports: anxiety. All systems rev & neg: except as noted Physical Examination - Vital Signs Temperature: 98.3 F Blood Pressure: 147/89 Pulse: 65 Respirations: 16 Pulse Ox (%): 94 - Physical Exam General: Alert, Oriented x3, Mild distress HEENT: Atraumatic, Normocephalic Neck: Supple, JVD not distended Respiratory: Clear to auscultation bilaterally, Normal air movement Cardiovascular: Regular rate/rhythm, Normal S1 S2 Capillary refill: <2 Seconds Gastrointestinal: Soft and benign, W/out hepatosplenomegaly Musculoskeletal: No clubbing, No swelling Integumentary: No rashes, No tenderness/swelling Neurological: Other (Alert , Awake , Non focal ) Lymphatics: No axilla or inguinal lymphadenopathy - Studies Laboratory Data (last 24 hrs) 12/17/24 12/17/24 12/17/24 21:43 21:43 21:43 WBC 6.30 Hgb 10.3 L Hct 30.5 L Plt Count 284 PT 12.6 INR 1.12 Sodium 143 Potassium 3.8 BUN 12 Creatinine 0.92 Glucose 110 H Magnesium 1.8 Total Bilirubin 0.3 AST 12 L ALT 15 Alkaline Phosphatase 90 Lipase 75 Assessment and Plan - Plan Hypertensive Emergency Started on antihypertensives Hydralazine as needed Monitor closely on telemetry Trend cardiac enzymes Generalized body pain Pain control Titrate as needed Elevated D-dimer CT chest not showing any PE Doppler negative for DVT Recent total knee arthroplasty PT evaluation Pain control Atelectasis bibasilar Started on empirical antibiotic Will obtain cultures Mucinex as needed Hyperlipidemia Continue statin Anemia Monitor H&H closely No overt bleeding at this time GI/DVT prophylaxis Advanced directive full code Discharge Plan: Home Plan to discharge in: 48 Hours - Advance Directives Does patient have a Living Will: No Does patient have a Durable POA for Healthcare: No - Code Status/Comfort Care Code Status: Full Code Time Spent Managing Pts Care (In Minutes): 48
[2024-12-18] MEDS ORDERED: METOCLOPRAMIDE 10 MG/2mL INJ ONE (03:24)
[2024-12-18] MEDS ORDERED: DIPHENHYDRAMINE 50 MG/ML VIAL ONE (03:25)
[2024-12-18] MEDS: TIZANIDINE 4 MG TABLET PO SCH (04:30)
[2024-12-18] MEDS ORDERED: OXYCODONE HCL 5 MG TAB PO PRN (04:30)
[2024-12-18] MEDS: HYDRALAZINE HCL 20 MG/ML VIAL IV PRN (04:47)
[2024-12-18] MEDS: MORPHINE 2 MG/ML SYR IV PRN (04:47)
[2024-12-18] MEDS: ACETAMINOPHEN 500 MG TAB PO SCH (05:00)
[2024-12-18] MEDS ORDERED: TIZANIDINE 4 MG TABLET PO PRN (05:02)
[2024-12-18] MEDS ORDERED: MELOXICAM 7.5 MG TAB PO PRN (05:03)
[2024-12-18] MEDS ORDERED: ACETAMINOPHEN 500 MG TAB PO PRN (05:04)
[2024-12-18 05:16] VITALS: BMI 37.8
[2024-12-18] MEDS: ONDANSETRON 4 MG/2 ML VIAL IV PRN (06:30)
[2024-12-18] MEDS: AZITHROMYCIN IV 500 MG in NA CHLORIDE 0.9% 250 ML IVPB SCH (08:04)
[2024-12-18] MEDS: NIFEDIPINE XL 30 MG TABLET PO SCH (08:05)
[2024-12-18] MEDS: CEFTRIAXONE 1,000 MG in NA CHLORIDE 0.9% 50 ML IVPB SCH (08:05)
[2024-12-18] MEDS: VALSARTAN 80 MG TAB PO SCH ×2 (08:06→22:42)
[2024-12-18] MEDS: ENOXAPARIN 40 MG/0.4 ML SQ SCH (08:06)
[2024-12-18] MEDS: ASPIRIN EC 81 MG TAB PO SCH (08:06)
[2024-12-18] MEDS: SERTRALINE HCL 100 MG TAB PO SCH (08:06)
[2024-12-18] MEDS: ATORVASTATIN 10 MG TAB PO SCH (08:06)
[2024-12-18] MEDS ORDERED: MELOXICAM 7.5 MG TAB PO SCH (09:00)
[2024-12-18] MEDS ORDERED: NIFEDIPINE XL 30 MG TABLET PO ONE (09:32)
[2024-12-18] MEDS: POLYETHYL GLY 3350 17 GM/DOSE PO ONE (11:59)
[2024-12-18] MEDS: ACETAMINOPHEN 325 MG TABLET PO PRN (14:26)
--- NOTE | 2024-12-18 14:43 | RAD REPORT ---
EXAM: AP view(s) of the abdomen Abdomen 1 View (KUB) HISTORY: ABD pain/N/V COMPARISON: None FINDINGS: Nonobstructive bowel gas pattern.. No suspicious calcifications are seen. No acute osseous abnormality. Other: n/a IMPRESSION: Nonobstructive bowel gas pattern.
[2024-12-18] MEDS: VANCOMYCIN 1 GM in NA CHLORIDE 0.9% 250 ML IVPB SCH (19:45)
[2024-12-18] MEDS ORDERED: LABETALOL 20 MG/4ML SYRINGE IV PRN (19:47)
[2024-12-18 20:32] LABS: Absolute Lymphocytes (CBC) 0.9 K/uL (0.7-4.9); Hematocrit 34.0 % (36.0-45.0); Hemoglobin 11.2 g/dL (12.0-15.0); MCH 28.0 pg (27.0-35.0); MCHC 32.8 g/dL (32.0-36.0); MCV 85.3 fL (80-100); MPV 8.1 fL (7.6-11.3); Nucleated RBC Absolute Count 0.0 (0-0); Nucleated Red Blood Cells % 0.1 % (0-0); RBC Red Blood Cell Count 3.99 M/uL (3.86-4.86); White Blood Count 7.50 thou/uL (4.3-10.9)
[2024-12-18] MEDS: METOCLOPRAMIDE 10 MG/2mL INJ IV PRN (20:39)
[2024-12-18 20:41] LABS: Magnesium 1.8 mg/dL (1.6-2.4)
[2024-12-18] MEDS: PIPER TAZO 3.375 GM in NA CHLORIDE 0.9% 100 ML IV SCH (20:41)
[2024-12-18] MEDS: NIFEDIPINE XL 30 MG TABLET PO ONE (20:46)
[2024-12-18] MEDS: Ringers Lactate 1,000 ML IV SCH (20:46)
[2024-12-18] MEDS: TRAMADOL HCL 50 MG TAB PO PRN (20:47)
--- NOTE | 2024-12-18 21:19 | RAD REPORT ---
EXAM: Chest Single View HISTORY: 74 years Female Cough COMPARISON: No prior exams FINDINGS: LUNGS/PLEURA: Mild increased opacities at the right lung base. CARDIAC/MEDIASTINUM: Mild cardiomegaly UPPER ABDOMEN: No significant abnormality. BONES: No acute abnormality. LINES/TUBES/OTHER: N/A IMPRESSION: Mild increased opacities at the right lung base could reflect atelectasis, pneumonitis, or early pneu monia.
[2024-12-18] MEDS: VANCOMYCIN 1 GM/VIAL ONE (22:21)
[2024-12-18] MEDS: NA CHLORIDE 0.9% 500 ML ONE (22:22)
[2024-12-18] MEDS: WATER FOR INJ,STERILE 30 ML ONE (22:23)
[2024-12-18] MEDS: WATER FOR INJ,STERILE 10 ML ONE (22:28)
[2024-12-18] MEDS: VANCOMYCIN 1.75 GM in NA CHLORIDE 0.9% 500 ML IVPB SCH (22:44)
[2024-12-18] MEDS: MELATONIN 5 MG TABLET PO PRN (23:08)
[2024-12-18 23:30] LABS: AST/SGOT 14 U/L (15-37); Albumin 3.3 g/dL (3.4-5.0); Albumin/Globulin Ratio 1.0 (1.1-1.8); Alkaline Phosphatase 89 U/L (45-117); Anion Gap 11.5 mEq/L (5.0-15.0); BUN Blood Urea Nitrogen 6 mg/dL (7-18); Globulin 3.3 g/dL (2.3-3.5); Glucose Level 128 mg/dL (74-106); Potassium 3.5 mEq/L (3.5-5.1)
[2024-12-18 23:40] LABS: ALT/SGPT < 14 U/L (13-56)
--- NOTE | 2024-12-19 08:45 | RAD REPORT ---
EXAMINATION: CT ABDOMEN AND PELVIS WITH CONTRAST CLINICAL INDICATION: Abdominal pain TECHNIQUE: CT abdomen and pelvis was performed, after the administration of 100 cc Isovue-300.. Sagit eze and coronal reconstructions were obtained. One or more of the following dose reduction techniques were used: Automated exposure control, adjustment of the mA and kV according to patient si ze, and iterative reconstruction. Unless otherwise specified, incidental findings do not require dedicated imaging follow-up. [id number]. Oral contrast was not given which limits evaluation of bowel and appendix. COMPARISON: .. 2020 FINDINGS: Small right and tiny left pleural effusions. Mild right lower lobe atelectasis Tiny benign hepatic lesions. The spleen, pancreas, adrenals and right kidneys appear unremarkable. 15 mm dense left renal mass unchanged from 2020 likely a benign complex cyst. Calcified splenic arterial aneurysms. Largest mostly calcified measuring 12 mm. Small duodenal divert iculum. Small umbilical hernia. Normal appendix. No adnexal mass. No evidence of diverticulitis. : IMPRESSION: Small right and tiny left pleural effusions. No acute abnormality abdomen/pelvis.
[2024-12-19] MEDS: POTASSIUM CL SA 10 MEQ TAB PO ONE (09:09)
--- NOTE | 2024-12-19 09:27 | P.PN ---
Date of Service: 12/18/24 Subjective Chart is been reviewed. Spoke with family and initial symptoms that started patient's issues after her knee surgery was that she was having uncontrolled blood pressure. She started retaking some of her blood pressure medicines that she had stopped because her blood pressure had been running pretty decently. She started the antihypertensives but then she developed some nausea and vomiting. She had been using quite a bit of her pain medication for her recent right knee surgery. Her last bowel movement was a couple of days ago. X-ray of the abdomen did not show any significant abnormalities. Patient still not feeling well and will continue with gentle hydration. Physical Examination - Vital Signs Reviewed - Physical Exam General: Alert, Oriented x3, Mild distress HEENT: Atraumatic, Normocephalic Respiratory: Clear to auscultation bilaterally, Normal air movement Cardiovascular: Regular rate/rhythm, Normal S1 S2 Gastrointestinal: Soft and benign, W/out hepatosplenomegaly Musculoskeletal: No clubbing, No swelling; incision to the right knee is clean /dry/intact Integumentary: No rashes, No tenderness/swelling Neurological: No focal deficits; Assessment and Plan -Assessment/Plan 1. Hypertensive Emergency; continue with antihypertensives. Continue with strict blood pressure control. Monitor cardiac status. 2. Abdominal pain with nausea and vomiting; continue with antiemetics and continue with gentle hydration 3. Elevated D-dimer; imaging studies including CT PE protocol and venous Doppler was unremarkable. 4. Status post right total knee arthroplasty; continue with pain control as needed. Physical therapy evaluation 5. Hyperlipidemia; Continue statin 6. Anemia; Monitor H&H closely GI/DVT prophylaxis Advanced directive full code Discharge Plan: Home Plan to discharge in: 48 Hours - Advance Directives Does patient have a Living Will: No Does patient have a Durable POA for Healthcare: No - Code Status/Comfort Care Code Status: Full Code Time Spent Managing Pts Care (In Minutes): 30
[2024-12-19] MEDS ORDERED: NIFEDIPINE XL 30 MG TABLET PO ONE (12:00)
[2024-12-19 20:25] VITALS: O2SAT 93
[2024-12-19] MEDS: ESZOPICLONE 1 MG TAB PO PRN (21:35)
[2024-12-20 05:11] VITALS: TEMP 97.8
[2024-12-20 08:19] VITALS: BP 159/89
[2024-12-20] MEDS: NIFEDIPINE XL 30 MG TABLET PO ONE (09:56)
== END 2024-12-20 10:30 | disposition home or self-care (01) | DRG 305 ==
LOC: ER 21:08 → ERHOLD 12-18 02:34 → 4TH 12-18 03:27
PROVIDERS: ADMIT Family Medicine; ATTEND Hospitalist
DX: I16.1 Hypertensive emergency (principal); J90 Pleural effusion, not elsewhere classified; I10 Essential (primary) hypertension; E78.5 Hyperlipidemia, unspecified; F32.A Depression, unspecified; Z96.659 Presence of unspecified artificial knee joint; Z79.82 Long term (current) use of aspirin; Z79.899 Other long term (current) drug therapy; Z79.891 Long term (current) use of opiate analgesic; D64.9 Anemia, unspecified; M25.561 Pain in right knee; E66.9 Obesity, unspecified; Z68.37 Body mass index [BMI] 37.0-37.9, adult; R11.2 Nausea with vomiting, unspecified
CPT/HCPCS: 36415; 70450; 71045; 71275; 74018; 74177; 80048; 80053; 80076; 81001; 83605; 83690; 83735; 83880; 84100; 84145; 84484; 85025; 85379; 85610; 86140; 87040; 93005; 93970; 94760; 96372; 96374; 96375; 99285; J0360; J0456; J0696; J1200; J1650; J2270; J2405; J2543; J2550; J2765; J3370; J7030; J7040; J7050; J7120; Q9967